=== PATIENT | female | born 1935 | race Caucasian/White ===

== ENCOUNTER 2016-10-05 09:49 | Observation (INO) ==
--- NOTE | 2016-10-05 09:56 | Emergency Department Note ---
Disposition Clinical Impression: Syncope, Fall, Laceration of head Disposition: Admitted As Inpatient General Adult HPI - General Chief complaint: ED Dizziness Stated complaint: cp/fall/lac/dizzy Time Seen by Provider: 10/05/16 09:52 Nursing Notes Reviewed: Yes Vital Signs Reviewed: Yes - Related Data Home Medications Medication Instructions Recorded Confirmed Albuterol Sulfate [Proair Hfa] 4 puff IH Q6H PRN 09/28/16 10/05/16 Baclofen [Lioresal] 10 mg PO TID 09/28/16 10/05/16 Digoxin [Lanoxin] 0.25 mg PO DAILY 09/28/16 10/05/16 Donepezil HCl [Aricept] 10 mg PO HS 09/28/16 10/05/16 Donepezil [Aricept] 5 mg PO QAM 09/28/16 10/05/16 Duloxetine HCl [Cymbalta] 60 mg PO DAILY 09/28/16 10/05/16 Esomeprazole Magnesium [Nexium] 40 mg PO QPM 09/28/16 10/05/16 Furosemide [Lasix] 40 mg PO DAILY 09/28/16 10/05/16 Gabapentin [Neurontin] 100 mg PO BID 09/28/16 10/05/16 Gabapentin [Neurontin] 200 mg PO HS 09/28/16 10/05/16 Lactulose 10 gm PO DAILY PRN 09/28/16 10/05/16 Lisinopril [Zestril] 10 mg PO DAILY 09/28/16 10/05/16 Montelukast [Singulair] 10 mg PO DAILY 09/28/16 10/05/16 Nitroglycerin [Nitrostat] 0.4 mg SL Q5M PRN 09/28/16 10/05/16 Simvastatin [Zocor] 20 mg PO HS 09/28/16 10/05/16 SitaGLIPtin [Januvia] 100 mg PO DAILY 09/28/16 10/05/16 Warfarin [Coumadin] 6 mg PO QPM 09/28/16 10/05/16 Levothyroxine [Synthroid] 150 mcg PO DAILY 10/05/16 10/05/16 Metformin HCl [Metformin HCl ER] 1,000 mg PO QAM 10/05/16 10/05/16 Nystatin POWDER [Nystop] 1 appl TP TID 10/05/16 10/05/16 Allergies Allergy/AdvReac Type Severity Reaction Status Date / Time Penicillins [PCN] Allergy Rash Verified 01/23/16 09:23 Sulfa (Sulfonamide Allergy Rash Verified 01/23/16 09:23 Antibiotics) azithromycin AdvReac Unknown Verified 09/28/16 20:11 Past Medical History - Past Medical History Medical history: Reports: arthritis, cardiomyopathy, COPD, dementia, diabetes, GERD, hyperlipidemia, hypertension, renal disease, thyroid disease, valvular heart disease, other Surgical history: Reports: heart valve replacement, other Psychiatric history: Reports: no psych history 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: Reports: no 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 - Social History Smoking Status: Never smoker Smokeless Tobacco Status: No Alcohol use: Reports: none Drug use: Reports: none Course Vital Signs Temperature 98.2 F 10/05/16 09:51 Pulse Rate 74 10/05/16 09:51 Respiratory Rate 18 10/05/16 09:51 Blood Pressure 142/90 10/05/16 09:51 O2 Sat by Pulse Oximetry 98 10/05/16 09:51 Temperature 97.2 F L 10/05/16 13:28 Pulse Rate 72 10/05/16 13:28 Respiratory Rate 15 10/05/16 13:28 Blood Pressure 156/74 10/05/16 13:28 O2 Sat by Pulse Oximetry 100 10/05/16 13:28 Oxygen Delivery Oxygen Delivery Room Air Medical Decision Making - MDM Narrative Medical decision making narrative: I examined this patient and my medical decision-making was reviewed with the REGIONAL VICE PRESIDENT [employer] SALES/PA/Advanced Practice Nurse/Resident Physician. I agree with the documented findings, disposition and treatment plan as described except to the extent set forth below. Patient was evaluated on arrival with EMS, and Dr. Chin. I agree with his evaluation, and management plan, I supervised her care of the patient throughout the stay. [facility] Had chest pain. Nitroglycerin. She will up and walk afterwards and ambulated and had an episode where she went down. She is not certain whether she lost consciousness or not. She did sustain a laceration over the forehead above the right eyebrow. This does not involve the eye itself. Showing some neck pain did place a c-collar on her by EMS. She will need a CT of her head neck tetanus update checking her lab work most likely will need admission between the possible syncopal episode the head injury and the chest pain. She has been green and plan she is stable at this time. Chest X-Ray 10/05/16 09:53 IMPRESSION: No acute cardiopulmonary abnormality. D/ / Leno Phillips MD / Leno Phillips MD Interpreting Provider: Leno Phillips MD Head CT 10/05/16 09:53 IMPRESSION: No acute intracranial abnormality. Stable periventricular white matter ischemic changes. D/ / Weston Shah MD / Weston Shah MD Interpreting Provider: Weston Shah MD Cervical Spine CT 10/05/16 09:56 IMPRESSION: No acute abnormality of the cervical spine. D/ / Jayjay Amato MD / Jayjay Amato MD Interpreting Provider: Jayjay Amato MD 1045 hrs.: Patient's CTs are back and are negative. Labs are coming back now this time also. Once there backward and reassess her and discuss disposition. - Lab Data Result diagrams: 10/05/16 09:55 10/05/16 09:55 Lab Results 10/05/16 10/05/16 10/05/16 Range/Units 09:55 09:55 09:55 WBC 7.5 (4.3-11.1) K/mcL RBC 4.28 (3.82-4.97) M/mcL Hgb 12.8 (11.5-15.4) g/dL Hct 39.1 (35.3-44.9) % MCV 91.4 (83.0-100.0) fL MCH 29.9 (28.0-33.3) pg MCHC 32.7 (31.6-35.5) g/dL RDW 13.5 (11.5-14.5) % Plt Count 183 (140-400) K/mcL MPV 10.5 (9.4-12.4) fL Immature Gran % 0.4 (0-4) % Seg Neutrophils % 70.8 % Lymphocytes % 17.0 % Monocytes % 8.9 % Eosinophils % 2.5 % Basophils % 0.4 % Neutrophils # 5.3 (1.6-8.9) K/mcL Lymphocytes # 1.3 (0.6-4.6) K/mcL Monocytes # 0.7 (0.0-1.3) K/mcL Eosinophils # 0.2 (0.0-0.6) K/mcL Basophils # 0.0 (0.0-0.2) K/mcL PT 21.8 H (9.4-12.1) Seconds INR 2.0 Sodium 139 (136-145) mEq/L Potassium 3.6 (3.5-4.5) mEq/L Chloride 102 (98-109) mEq/L Carbon Dioxide 29 (19-29) mEq/L BUN 13 (7-20) mg/dL Creatinine 0.85 (0.57-1.11) mg/dL Est GFR ( Amer) > 60 (> 60) Est GFR (Non-Af Amer) > 60 (> 60) BUN/Creatinine Ratio 15 (6-26) Glucose 115 H (70-99) mg/dL Calculated Osmolality 289 (280-300) Calcium 9.5 (8.6-10.8) mg/dL Total Bilirubin 0.9 (0.2-1.2) mg/dL AST 22 (5-34) Units/L ALT 18 (0-55) Units/L Alkaline Phosphatase 78 (38-126) Units/L Troponin I (0-0.03) ng/mL Serum Total Protein 7.3 (6.0-8.3) g/dL Albumin 3.6 (3.5-5.0) g/dL Globulin 3.7 H (2.4-3.5) g/dL Albumin/Globulin Ratio 1.0 L (1.1-2.2) 10/05/16 Range/Units 09:55 WBC (4.3-11.1) K/mcL RBC (3.82-4.97) M/mcL Hgb (11.5-15.4) g/dL Hct (35.3-44.9) % MCV (83.0-100.0) fL MCH (28.0-33.3) pg MCHC (31.6-35.5) g/dL RDW (11.5-14.5) % Plt Count (140-400) K/mcL MPV (9.4-12.4) fL Immature Gran % (0-4) % Seg Neutrophils % % Lymphocytes % % Monocytes % % Eosinophils % % Basophils % % Neutrophils # (1.6-8.9) K/mcL Lymphocytes # (0.6-4.6) K/mcL Monocytes # (0.0-1.3) K/mcL Eosinophils # (0.0-0.6) K/mcL Basophils # (0.0-0.2) K/mcL PT (9.4-12.1) Seconds INR Sodium (136-145) mEq/L Potassium (3.5-4.5) mEq/L Chloride (98-109) mEq/L Carbon Dioxide (19-29) mEq/L BUN (7-20) mg/dL Creatinine (0.57-1.11) mg/dL Est GFR ( Amer) (> 60) Est GFR (Non-Af Amer) (> 60) BUN/Creatinine Ratio (6-26) Glucose (70-99) mg/dL Calculated Osmolality (280-300) Calcium (8.6-10.8) mg/dL Total Bilirubin (0.2-1.2) mg/dL AST (5-34) Units/L ALT (0-55) Units/L Alkaline Phosphatase (38-126) Units/L Troponin I 0.01 (0-0.03) ng/mL Serum Total Protein (6.0-8.3) g/dL Albumin (3.5-5.0) g/dL Globulin (2.4-3.5) g/dL Albumin/Globulin Ratio (1.1-2.2)
[2016-10-05] MEDS ORDERED: Tdap (Boostrix) Vaccine 0.5 ML SYRINGE IM ONE (09:57)
[2016-10-05] MEDS ORDERED: 0.9 % Sodium Chloride 500 ML IVC ONE (09:59)
--- NOTE | 2016-10-05 10:00 | Emergency Department Note ---
Disposition Clinical Impression: Syncope Qualifiers: Syncope type: unspecified Qualified Code(s): R55 - Syncope and collapse Fall Qualifiers: Encounter type: initial encounter Qualified Code(s): W19.XXXA - Unspecified fall, initial encounter Laceration of head Qualifiers: Encounter type: initial encounter Location of open wound of head: scalp Foreign body presence: without foreign body Qualified Code(s): S01.01XA - Laceration without foreign body of scalp, initial encounter Disposition: Admitted As Inpatient Syncope HPI - General Chief Complaint: ED Dizziness Stated Complaint: cp/fall/lac/dizzy Time Seen by Provider: 10/05/16 09:52 Source: patient, EMS Mode of arrival: EMS Limitations: no limitations Nursing Notes Reviewed: Yes Vital Signs Reviewed: Yes - History of Present Illness HPI Narrative: 81-year-old female history of A. fib, systolic heart failure, COPD, A. fib with mechanical valve on Coumadin presents for evaluation following a fall. Patient' s prodrome prior to the fall was she is being treated for chest pain at the nursing facility and was given a pill possibly nitroglycerin. Patient then annually to the restroom and fell which was unwitnessed. Questionable LOC. Patient then ambulated to the couch where she called for assistance. Patient complaining of head and neck pain as well as chest pain. Patient denies any short of breath. No abdominal pain. No nausea vomiting. - Related Data Home Medications Medication Instructions Recorded Confirmed Albuterol Sulfate [Proair Hfa] 4 puff IH Q6H PRN 09/28/16 09/28/16 Baclofen [Lioresal] 10 mg PO TID 09/28/16 09/28/16 Digoxin [Lanoxin] 0.25 mg PO DAILY 09/28/16 09/28/16 Donepezil HCl [Aricept] 10 mg PO HS 09/28/16 09/28/16 Donepezil [Aricept] 5 mg PO QAM 09/28/16 09/28/16 Duloxetine HCl [Cymbalta] 60 mg PO DAILY 09/28/16 09/28/16 Esomeprazole Magnesium [Nexium] 40 mg PO QPM 09/28/16 09/28/16 Furosemide [Lasix] 40 mg PO DAILY 09/28/16 09/28/16 Gabapentin [Neurontin] 100 mg PO BID 09/28/16 09/28/16 Gabapentin [Neurontin] 200 mg PO HS 09/28/16 09/28/16 Lactulose 10 gm PO DAILY PRN 09/28/16 09/28/16 Lisinopril [Zestril] 10 mg PO DAILY 09/28/16 09/28/16 Montelukast [Singulair] 10 mg PO DAILY 09/28/16 09/28/16 Nitroglycerin [Nitrostat] 0.4 mg SL Q5M PRN 09/28/16 09/28/16 Simvastatin [Zocor] 20 mg PO HS 09/28/16 09/28/16 SitaGLIPtin [Januvia] 100 mg PO DAILY 09/28/16 09/28/16 Warfarin [Coumadin] 6 mg PO QPM 09/28/16 09/28/16 Levothyroxine [Synthroid] 150 mcg PO DAILY 10/05/16 10/05/16 Metformin HCl [Metformin HCl ER] 1,000 mg PO QAM 10/05/16 10/05/16 Nystatin POWDER [Nystop] 1 appl TP TID 10/05/16 10/05/16 Allergies Allergy/AdvReac Type Severity Reaction Status Date / Time Penicillins [PCN] Allergy Rash Verified 01/23/16 09:23 Sulfa (Sulfonamide Allergy Rash Verified 01/23/16 09:23 Antibiotics) azithromycin AdvReac Unknown Verified 09/28/16 20:11 All systems ED: reviewed and negative except as stated. Constitutional: Reports: as per HPI. Denies: fever Eyes: Reports: as per HPI ENT ED: Reports: as per HPI Cardiovascular: Reports: as per HPI, chest pain Respiratory: Reports: as per HPI. Denies: cough, dyspnea Gastrointestinal: Reports: as per HPI. Denies: abdominal pain, nausea, vomiting Genitourinary: Reports: as per HPI Musculoskeletal: Reports: as per HPI, neck pain. Denies: back pain Integumentary: Reports: as per HPI Neurological: Reports: as per HPI Psychiatric: Reports: as per HPI Endocrine: Reports: as per HPI Hematological/Lymphatic: Reports: as per HPI Allergic/Immunologic: Reports: as per HPI Past Medical History - Past Medical History Medical history: Reports: arthritis, cardiomyopathy, COPD, dementia, diabetes, GERD, hyperlipidemia, hypertension, renal disease, thyroid disease, valvular heart disease, other Surgical history: Reports: heart valve replacement, other Psychiatric history: Reports: no psych history ALGEBRAIST history: Reports: no ALGEBRAIST history - Social History Smoking Status: Never smoker Smokeless Tobacco Status: No Alcohol use: Reports: none Drug use: Reports: none Physical Exam - General Limitations: no limitations, language barrier General appearance: alert, in no apparent distress - Head Head exam: normocephalic, normal inspection, other (2 cm linear laceration above the right upper supraorbital ridge) - Eye Eye exam: Present: normal appearance, EOMI, miosis. Absent: nystagmus - ENT ENT exam: normal exam, mucous membranes moist - Neck Neck exam: Present: normal inspection, tenderness (Midline), other (In a cervical collar) - Chest Chest inspection: Present: normal inspection, symmetric chest wall rise - Respiratory Respiratory exam: Present: normal lung sounds bilaterally. Absent: respiratory distress - Cardiovascular Cardiovascular exam: Present: regular rate, normal rhythm, systolic murmur - Abdominal Exam Abdominal exam: Present: soft, Non-Tender - Extremities Exam Extremities exam: Present: normal inspection, pedal edema (23 plus pedal edema bilaterally) - Expanded Lower Extremity Exam Hip/Pelvis exam: Present: normal inspection. Absent: tenderness Upper leg exam: Present: normal inspection. Absent: tenderness Neurovascular/Tendon exam: Present: normal capillary refill - Back Exam Back exam: Present: normal inspection - Neurological Exam Neurological exam: Present: alert, oriented X3 - Expanded Neurological Exam Patient oriented to: Present: person, place, time Speech: Present: fluid speech Motor strength - LUE: 5/5 Motor strength - RUE: 5/5 Motor strength - LLE: 5/5 Motor strength - RLE: 5/5 Coma Scale Eye Opening: Spontaneous Coma Scale Motor Response: Obeys Commands Coma Scale Verbal Response: Oriented Coma Scale Total: 15 - Skin Skin exam: Present: warm, dry, intact, normal color Course Course Narrative: Patient seen and examined. Patient is complaining of head and neck pain. Patient does have a linear laceration over the right supraorbital ridge but is not involving any tarsal muscles. Patient will get a syncopal workup, laceration. Updated tetanus, is a collapsed CT of the head and neck and chest x -ray. Patient's records were reviewed. Patient had an echo obtained back in April 2015 with an EF of 65 with a mechanical aortic valve. - Reevaluation(s) Reevaluation #1: Patient's laceration was repaired. Patient tolerated the procedure well. Patient denies any pain at this time. Patient's cervical collar was removed and her C-spine is cleared. Time: 11:20 Vital Signs Temperature 98.2 F 10/05/16 09:51 Pulse Rate 74 10/05/16 09:51 Respiratory Rate 18 10/05/16 09:51 Blood Pressure 142/90 10/05/16 09:51 O2 Sat by Pulse Oximetry 98 10/05/16 09:51 Temperature 98.2 F 10/05/16 09:51 Pulse Rate 74 10/05/16 09:51 Respiratory Rate 18 10/05/16 09:51 Blood Pressure 142/90 10/05/16 09:51 O2 Sat by Pulse Oximetry 98 10/05/16 09:51 Oxygen Delivery Oxygen Delivery Room Air Procedures - Laceration Laceration 1 Site: scalp Side (If applicable): right Size (cm): 5 Description: linear Depth: simple, single layer Local Anesthetic: lidocaine 2%, with epi Amount of Anesthesia Used (mL): 3 Pre-repair: wound explored, irrigated extensively, deep structures intact, extensive debridement, wound margins revised Skin layer closed with: nylon Size: 5-0 Number of sutures/royal: 7 Technique: simple, interrupted Syncope - [facility] Narrative Medical decision making narrative: 81-year-old female presents from a nursing facility for fall question possible syncope. Fall was unwitnessed. Patient did complain of chest pain prior to his given was presumed to be nitroglycerin. Patient then went into the restroom and fell. Patient does have evidence of fall with laceration over her head. Patient's laceration was repaired. Patient's tetanus was updated. Patient had imaging of the head and neck as well as chest. No acute abnormalities were noted. Patient's mental status is at baseline. Patient is alert. Patient is on Coumadin with an INR 2.0. Patient's EKG shows no acute changes. Patient's lab work is unremarkable. Patient will likely need monitoring in hospital setting with neuro checks on mental status as well as further evaluation. Hospitalist accepted the patient. Patient is agreeable to plan of care. - Lab Data Lab results reviewed: Yes I reviewed the patient's lab results. Result diagrams: 10/05/16 09:55 10/05/16 09:55 Lab Results 10/05/16 10/05/16 10/05/16 Range/Units 09:55 09:55 09:55 WBC 7.5 (4.3-11.1) K/mcL RBC 4.28 (3.82-4.97) M/mcL Hgb 12.8 (11.5-15.4) g/dL Hct 39.1 (35.3-44.9) % MCV 91.4 (83.0-100.0) fL MCH 29.9 (28.0-33.3) pg MCHC 32.7 (31.6-35.5) g/dL RDW 13.5 (11.5-14.5) % Plt Count 183 (140-400) K/mcL MPV 10.5 (9.4-12.4) fL Immature Gran % 0.4 (0-4) % Seg Neutrophils % 70.8 % Lymphocytes % 17.0 % Monocytes % 8.9 % Eosinophils % 2.5 % Basophils % 0.4 % Neutrophils # 5.3 (1.6-8.9) K/mcL Lymphocytes # 1.3 (0.6-4.6) K/mcL Monocytes # 0.7 (0.0-1.3) K/mcL Eosinophils # 0.2 (0.0-0.6) K/mcL Basophils # 0.0 (0.0-0.2) K/mcL PT 21.8 H (9.4-12.1) Seconds INR 2.0 Sodium 139 (136-145) mEq/L Potassium 3.6 (3.5-4.5) mEq/L Chloride 102 (98-109) mEq/L Carbon Dioxide 29 (19-29) mEq/L BUN 13 (7-20) mg/dL Creatinine 0.85 (0.57-1.11) mg/dL Est GFR ( Amer) > 60 (> 60) Est GFR (Non-Af Amer) > 60 (> 60) BUN/Creatinine Ratio 15 (6-26) Glucose 115 H (70-99) mg/dL Calculated Osmolality 289 (280-300) Calcium 9.5 (8.6-10.8) mg/dL Total Bilirubin 0.9 (0.2-1.2) mg/dL AST 22 (5-34) Units/L ALT 18 (0-55) Units/L Alkaline Phosphatase 78 (38-126) Units/L Troponin I (0-0.03) ng/mL Serum Total Protein 7.3 (6.0-8.3) g/dL Albumin 3.6 (3.5-5.0) g/dL Globulin 3.7 H (2.4-3.5) g/dL Albumin/Globulin Ratio 1.0 L (1.1-2.2) 10/05/16 Range/Units 09:55 WBC (4.3-11.1) K/mcL RBC (3.82-4.97) M/mcL Hgb (11.5-15.4) g/dL Hct (35.3-44.9) % MCV (83.0-100.0) fL MCH (28.0-33.3) pg MCHC (31.6-35.5) g/dL RDW (11.5-14.5) % Plt Count (140-400) K/mcL MPV (9.4-12.4) fL Immature Gran % (0-4) % Seg Neutrophils % % Lymphocytes % % Monocytes % % Eosinophils % % Basophils % % Neutrophils # (1.6-8.9) K/mcL Lymphocytes # (0.6-4.6) K/mcL Monocytes # (0.0-1.3) K/mcL Eosinophils # (0.0-0.6) K/mcL Basophils # (0.0-0.2) K/mcL PT (9.4-12.1) Seconds INR Sodium (136-145) mEq/L Potassium (3.5-4.5) mEq/L Chloride (98-109) mEq/L Carbon Dioxide (19-29) mEq/L BUN (7-20) mg/dL Creatinine (0.57-1.11) mg/dL Est GFR ( Amer) (> 60) Est GFR (Non-Af Amer) (> 60) BUN/Creatinine Ratio (6-26) Glucose (70-99) mg/dL Calculated Osmolality (280-300) Calcium (8.6-10.8) mg/dL Total Bilirubin (0.2-1.2) mg/dL AST (5-34) Units/L ALT (0-55) Units/L Alkaline Phosphatase (38-126) Units/L Troponin I 0.01 (0-0.03) ng/mL Serum Total Protein (6.0-8.3) g/dL Albumin (3.5-5.0) g/dL Globulin (2.4-3.5) g/dL Albumin/Globulin Ratio (1.1-2.2) - Radiology Data Radiology results reviewed: Yes I reviewed the patient's radiology results. Chest X-Ray 10/05/16 09:53 IMPRESSION: No acute cardiopulmonary abnormality. D/ / Leno Phillips MD / Leno Phillips MD Interpreting Provider: Leno Phillips MD Head CT 10/05/16 09:53 IMPRESSION: No acute intracranial abnormality. Stable periventricular white matter ischemic changes. D/ / 10/05/2016 10:44:55 Weston Shah MD / [facility] Interpreting Provider: Weston Shah MD Cervical Spine CT 10/05/16 09:56 IMPRESSION: No acute abnormality of the cervical spine. D/ / Jayjay Amato MD / Jayjay Amato MD Interpreting Provider: Jayjay Amato MD - EKG Data EKG shows normal: sinus rhythm Rate: normal Rhythm: NSR Kamuela/QRS: left axis deviation, LAHB/LAFB Heart block present: 1st Degree When compared to previous EKG there are: no significant changes Interpretation: no acute changes, unchanged when compared to prior tracing (date ), nonspecific ST-T wave changes S.B.A.R. - S.B.A.R. Situation: Demographics Background: Presenting Complaint, Relevant PMH, Meds, & Allergies Assessment: Vital Signs, Course and respsone to treatment, Patient/Family Expectation Recommendation: Barrier(s) to disposition, Recommendation based on pending studies, treatments, or consults S.B.A.R. Report Given to: Dr. Adriana Vegas Repor Time: 11:37
[2016-10-05] MEDS ORDERED: Lidocaine/EPI 1:100k 2% 20 ML VIAL INFILT ONE (10:05)
[2016-10-05 10:06] LABS: Basophils % 0.4 %; Eosinophils # 0.2 K/mcL (0.0-0.6); Eosinophils % 2.5 %; Hematocrit 39.1 % (35.3-44.9); Hemoglobin 12.8 g/dL (11.5-15.4); Immature Granulocytes % 0.4 % (0-4); Lymphocytes # 1.3 K/mcL (0.6-4.6); Mean Corpuscular HGB Conc 32.7 g/dL (31.6-35.5); Mean Corpuscular Hemoglobin 29.9 pg (28.0-33.3); Mean Corpuscular Volume 91.4 fL (83.0-100.0); Mean Platelet Volume 10.5 fL (9.4-12.4); Monocytes # 0.7 K/mcL (0.0-1.3); Monocytes % 8.9 %; Neutrophils # 5.3 K/mcL (1.6-8.9); Platelet Count 183 K/mcL (140-400); Red Blood Count 4.28 M/mcL (3.82-4.97); Red Cell Distribution Width 13.5 % (11.5-14.5); Segmented Neutrophils % 70.8 %
[2016-10-05 10:11] LABS: Prothrombin Time 21.8 Seconds (9.4-12.1)
[2016-10-05 10:23] LABS: Alanine Aminotransferase 18 Units/L (0-55); Albumin 3.6 g/dL (3.5-5.0); Alkaline Phosphatase 78 Units/L (38-126); Aspartate Amino Transferase 22 Units/L (5-34); BUN/Creatinine Ratio 15 (6-26); Bilirubin,Total 0.9 mg/dL (0.2-1.2); Blood Urea Nitrogen 13 mg/dL (7-20); Calcium 9.5 mg/dL (8.6-10.8); Carbon Dioxide 29 mEq/L (19-29); Chloride 102 mEq/L (98-109); Globulin 3.7 g/dL (2.4-3.5); Glucose 115 mg/dL (70-99); Osmolality,Calculated 289 (280-300); Potassium 3.6 mEq/L (3.5-4.5); Sodium 139 mEq/L (136-145); Total Protein 7.3 g/dL (6.0-8.3); eGFR For African Americans > 60 (> 60); eGFR For Non-African Americans > 60 (> 60)
[2016-10-05 12:33] LABS: Bilirubin,Urine Negative (Negative); Blood,Urine Negative (Negative); Clarity,Urine Clear (Clear); Color,Urine Yellow (Yellow); Glucose,Urine (UA) Normal (Normal); Ketones,Urine Negative (Negative); Leukocyte Esterase,Urine Negative (Negative); Nitrite,Urine Negative (Negative); Protein,Urine Negative (Neg-Trace); Specific Gravity,Urine < 1.005 (1.010-1.025); Urobilinogen,Urine Normal (Normal)
[2016-10-05] MEDS ORDERED: Naloxone 0.4 MG/ML INJ IVP PRN (13:14)
[2016-10-05] MEDS ORDERED: Acetaminophen 325 MG TABLET PO PRN (13:14)
[2016-10-05] MEDS ORDERED: Ondansetron 4 MG/2 ML VIAL IVP PRN (13:14)
[2016-10-05] MEDS ORDERED: Nitroglycerin 0.4 MG TAB.SUBL SL PRN (13:16)
[2016-10-05] MEDS ORDERED: Dextrose Gel 15 GM PO PRN ×2 (13:53)
[2016-10-05] MEDS ORDERED: D5% in Water 1,000 ML IV PRN (13:53)
[2016-10-05] MEDS ORDERED: *HR* Dextrose 50 % in Water (Syg) 50 ML SYRINGE IVP PRN (13:53)
--- NOTE | 2016-10-05 15:08 | Internal Med History&Physical ---
Date of Encounter: 10/05/16 Time of Encounter: 13:00 Assessment and Plan (1) Chest pain Current visit: Yes Status: Acute Intermittent ongoing chest pain, associated with dyspnea and pedal edema, to consider ACS. Telemetry monitoring with serial troponins. Check 2-D echocardiogram to assess for left ventricular ejection fraction. Nuclear stress test to evaluate for coronary ischemia. Continue Coumadin and statin. Qualifiers: Chest pain type: precordial chest pain Qualified Code(s): R07.2 - Precordial pain (2) Syncope Current visit: Yes Status: Acute Unclear history. CT head done in the emergency room showed no acute abnormality. CT cervical spine showed no evidence of fractures or trauma. Continue telemetry monitoring and cardiac workup as above. Qualifiers: Syncope type: unspecified Qualified Code(s): R55 - Syncope and collapse (3) Laceration of head Current visit: Yes Status: Acute Status post fall, likely from syncope. She received sutures in the emergency room. Pain control with when necessary Tylenol. No evidence of skull fracture on CT head. Qualifiers: Encounter type: initial encounter Location of open wound of head: scalp Foreign body presence: without foreign body Qualified Code(s): S01.01XA - Laceration without foreign body of scalp, initial encounter (4) Fall Current visit: Yes Status: Acute Qualifiers: Encounter type: initial encounter Qualified Code(s): W19.XXXA - Unspecified fall, initial encounter (5) H/O aortic valve replacement Current visit: Yes Status: Chronic Continue anticoagulation with Coumadin as patient is not noted to have any active bleed. (6) Hypothyroidism Current visit: Yes Status: Chronic Resume levothyroxine. Qualifiers: Hypothyroidism type: acquired Qualified Code(s): E03.9 - Hypothyroidism, unspecified (7) Atrial fibrillation Current visit: Yes Status: Chronic Qualifiers: Atrial fibrillation type: paroxysmal Qualified Code(s): I48.0 - Paroxysmal atrial fibrillation (8) COPD (chronic obstructive pulmonary disease) Current visit: Yes Status: Chronic Not in acute exacerbation. Continue when necessary bronchodilators and supplemental oxygen. Qualifiers: COPD type: unspecified COPD Qualified Code(s): J44.9 - Chronic obstructive pulmonary disease, unspecified (9) Dementia Current visit: Yes Status: Chronic Continue Aricept. Qualifiers: Dementia type: Alzheimer's disease Alzheimer's disease onset: late-onset Dementia behavioral disturbance: without behavioral disturbance Qualified Code (s): G30.1 - Alzheimer's disease with late onset; F02.80 - Dementia in other diseases classified elsewhere without behavioral disturbance (10) Hypertension Current visit: Yes Status: Chronic Qualifiers: Hypertension type: essential hypertension Qualified Code(s): I10 - Essential (primary) hypertension (11) Type 2 diabetes mellitus Current visit: Yes Status: Chronic Accu-Chek blood glucose monitoring with sliding scale insulin as needed. Diabetic diet. Check hemoglobin A1c. Qualifiers: Diabetes mellitus complication status: without complication Diabetes mellitus extermination inspector insulin use: without jail use Qualified Code(s): E11.9 - Type 2 diabetes mellitus without complications Internal Medicine - H&P: HPI Chief complaint: Chest pain, fall Admitted From: Emergency Dept Plans for Post Hospital Care: Home (Assisted living) History of present illness: Ms. Devine is a 81 year old female with history of atrial fibrillation, mechanical aortic valve replacement on anticoagulation, was brought in for evaluation of forehead laceration after sustaining a fall. Patient had a recent admission less than a week ago for evaluation of chest pain, however decided to leave AGAINST MEDICAL ADVICE. She requested to go back to her assisted living facility today, however decided to stay for further evaluation at this time. Patient reports that she was walking to the restroom and back when she felt dizzy and fell down yesterday, hitting her forehead and sustaining a bruise and a cut. She also has history of previous falls. She reports intermittent ongoing chest pain for the last 4-5 days, retrosternal pressure-like sensation, nonradiating, associated with leg swelling and some shortness of breath. Although she is oriented to person and place in general, she is unable to provide specific details regarding her medical history. History is also obtained from review of previous medical records and discussion with emergency room physician. It is questionable whether she follows with cardiology or if she does have underlying CHF but she is noted to be on diuretics and long-term anticoagulation. Past Med Surg Social Fam HX - Past Medical History Medical history: arthritis, atrial fibrillation, cardiomyopathy, COPD, dementia , diabetes, GERD, hyperlipidemia, hypertension, renal disease, thyroid disease, valvular heart disease (Aortic valve replacement), other (Urinary incontinence) Psychiatric history: no psych history - Past Surgical History Surgical History: appendectomy, , heart valve replacement, other - Social History Smoking Status: Never smoker Smokeless Tobacco Status: No Alcohol use: none Drug use: none Occupational status: disabled Current living situation: Assisted Living Activity Level: Independent ambulation Recent Out of Country Travel Within the Last 8 Weeks: No Exposure or Possible Exposure to Illness During Travel: No - Family History Father Name: Cristino Vasques Living Status: Age at : 85 Internal Medicine - H&P: Meds Albuterol Sulfate [Proair Hfa] 4 puff IH Q6H PRN 09/28/16 [History] Baclofen [Lioresal] 10 mg PO TID 09/28/16 [History] Digoxin [Lanoxin] 0.25 mg PO DAILY 09/28/16 [History] Donepezil HCl [Aricept] 10 mg PO HS 09/28/16 [History] Donepezil [Aricept] 5 mg PO QAM 09/28/16 [History] Duloxetine HCl [Cymbalta] 60 mg PO DAILY 09/28/16 [History] Esomeprazole Magnesium [Nexium] 40 mg PO QPM 09/28/16 [History] Furosemide [Lasix] 40 mg PO DAILY 09/28/16 [History] Gabapentin [Neurontin] 100 mg PO BID 09/28/16 [History] Gabapentin [Neurontin] 200 mg PO HS 09/28/16 [History] Lactulose 10 gm PO DAILY PRN 09/28/16 [History] Lisinopril [Zestril] 10 mg PO DAILY 09/28/16 [History] Montelukast [Singulair] 10 mg PO DAILY 09/28/16 [History] Nitroglycerin [Nitrostat] 0.4 mg SL Q5M PRN 09/28/16 [History] Simvastatin [Zocor] 20 mg PO HS 09/28/16 [History] SitaGLIPtin [Januvia] 100 mg PO DAILY 09/28/16 [History] Warfarin [Coumadin] 6 mg PO QPM 09/28/16 [History] Levothyroxine [Synthroid] 150 mcg PO DAILY 10/05/16 [History] Metformin HCl [Metformin HCl ER] 1,000 mg PO QAM 10/05/16 [History] Nystatin POWDER [Nystop] 1 appl TP TID 10/05/16 [History] Allergies Penicillins [PCN] Allergy (Verified 01/23/16 09:23) Rash Sulfa (Sulfonamide Antibiotics) Allergy (Verified 01/23/16 09:23) Rash azithromycin Adverse Reaction (Verified 09/28/16 20:11) Unknown ECF list All Systems PM: A 10-system review of systems was performed and is negative for pertinent findings except as documented above in the HPI. - Constitutional Constitutional: no chills, no fever(s), no night sweats - EENT Eyes: no change in vision, no discharge, no pain, no photophobia Ears: no ear discharge, no ear pain, no tinnitus Nose, mouth and throat: no dysphagia, no nasal discharge, no neck pain, no sore throat - Cardiovascular Cardiovascular ROS IM: chest pain, dyspnea, edema, lightheadedness - Respiratory Respiratory: no cough, no dyspnea, no wheezing, no excessive phlegm production - Gastrointestinal Gastrointestinal: no abdominal pain, no diarrhea, no hematemesis, no hematochezia, no melena, no nausea, no vomiting - Genitourinary Genitourinary: no change in urinary stream, no dysuria, no flank pain, no hematuria - Musculoskeletal Musculoskeletal ROS IM: no numbness, no tingling - Integumentary Integumentary IM: no rash, no unusual bruising - Neurological Neurological ROS: no confusion, no convulsions, no focal weakness, no numbness, no tingling, no tremor(s) - Hematologic/Lymphatic Hematologic/Lymphatic: no easy bruising - Constitutional Vitals: Temp Pulse Resp BP Pulse Ox 97.2 F L 72 15 156/74 100 10/05/16 13:28 10/05/16 13:28 10/05/16 13:28 10/05/16 13:28 10/05/16 13:28 General appearance: Present: A&O X 2 - Head Head exam: Present: atraumatic, normocephalic Additional comments: 5cm linear transverse laceration sutured over right eyebrow, with surrounding contusion - Neck Neck exam general surgery: Present: supple, trachea midline. Absent: lymphadenopathy - Respiratory Respiratory exam: Present: CTAB. Absent: accessory muscle use, rales, rhonchi, wheezes - Cardiovascular Cardiovascular exam: Present: RRR, +S1, +S2 (mechanical heart sound), systolic murmur. Absent: diastolic murmur, gallop, rubs - GI/Abdominal GI/Abdominal exam: Present: normal bowel sounds, soft, no peritoneal signs. Absent: distended, tenderness - Extremities Exam Extremities exam: Present: full ROM, pedal edema (2+ pedal edema, pitting, B/L upto thighs), warm, radial pulses palpable and symetrical. Absent: calf tenderness, cyanotic - Neurological Exam Neurological exam: Present: CN II-XII intact, no focal deficits. Absent: pronater drift, facial droop, speech deficit - Skin Skin exam: Present: dry, intact Internal Med - H&P Results - Labs CBC & Chem 7: 10/05/16 09:55 10/05/16 09:55 Labs: Urine 10/05/16 Range/Units 11:48 Urine Color Yellow (Yellow) Urine Clarity Clear (Clear) Urine pH 7.0 (5.0-8.0) pH Units Ur Specific [place] < 1.005 L (1.010-1.025) Urine Protein Negative (Neg-Trace) mg/dL Urine Glucose (UA) Normal (Normal) mg/dL - EKG Data -: EKG Interpreted by Myself EKG shows normal: sinus rhythm - EKG Data When compared to previous EKG: there is no significant change EKG comments: 10/05/16 15:14 NSR with LAFB, PACs, LVH with repolarization abnormalities
--- NOTE | 2016-10-05 17:09 | ECHO - Doppler Report ---
Echocardiogram Name: Angelica Devine Date of Study: 10/05/2016 Date: 1935 Ht: 63.0 in Medical Record#: [id number] Age: 81 Wt: 188.0 lb Gender: Female BSA: 1.88 Order #: [id number] Location: [facility] Room #: [id number] Reading Physician: Austin Mills DO, JOSE FRANCISCO, BRIDGER EDGAR [employer]: Ordering Physician: Kelli Wright MD Primary Physician: Jules Spain MD Indications: Chest pain Impressions: LVEF 70%. Normal LV chamber size, wall thickness and function. Atypical septal motion consistent with post-operative status. Mild left ventricular diastolic dysfunction. Normal right ventricular structure and function. Mechanical aortic valve apears to be well seated. Leaflets were not well visualized. No aortic regurgitation. Mean gradient 18 mmHg. Correlate with size and type of valve. No evidence of pulmonary hypertension. Left Ventricular Wall Motion: Rest Echo Findings All wall segments showed normal motion. Findings: Study Quality * Technically adequate exam. ECG Findings * Normal sinus rhythm. Left Ventricle * LVEF 70%. * Normal LV chamber size, wall thickness and function. * Atypical septal motion consistent with post-operative status. * Mild left ventricular diastolic dysfunction. Right Ventricle * Normal right ventricular structure and function. Left Atrium * Mildly dilated left atrium. Right Atrium * Normal right atrial size. Interatrial Septum * Interatrial septum not well evaluated. Aortic Valve * Mechanical aortic valve apears to be well seated. Leaflets were not well visualized. * No aortic regurgitation. * Mean gradient 18 mmHg. Correlate with size and type of valve. Mitral Valve * Mild mitral annular calcification. * No mitral regurgitation. * No mitral stenosis. Tricuspid Valve * Normal tricuspid valve structure and function. * Trace tricuspid regurgitation. * No evidence of pulmonary hypertension. Pulmonic Valve * Pulmonic valve not well visualized. Aorta * Normally sized aortic root. Pericardium * The pericardium appears normal. IVC * Normal IVC dimensions and inspiratory collapse. Pulmonary Artery * Normal visualized portions of the main pulmonary artery. History Hypertension Diabetes Hypercholesteremia Family History of CAD Congestive Heart Failure Valvular Disease Valve Replacement AV Prosthesis Mechanical 05/26/2015 a Previous Echo was performed. Measurements: BP: 126/ 69 2D Normal Values RVIDd: 2.80 cm <2.7 cm IVSd: 1.20 cm 0.6 - 1.0 cm LVIDd: 4.30 cm 3.7 - 5.6 cm LVPWd: 1.20 cm 0.6 - 1.1 cm LVIDs: 3.00 cm 1.5 - 3.6 cm AO: 3.10 cm < 4.0 cm LA: 4.00 cm 2.0 - 4.0cm %FS: 30.20 cm >25 % LVOT Diam: 2.00 cm LA volume: 47 Mitral Valve Peak E:1.02 m/sec Peak A:1.29 m/sec E/A Ratio:0.8 Peak E' Lat Ross:5.85 cm/s Peak E' Med Ross:5.36 cm/s E/E' Lat Ratio:17.4 E/E' Med Ratio:19 LVOT Peak Ross:1.46 m/sec Mean Ross:.98 m/sec Peak Grad:9.00 mmHg Mean Grad:5.00 mmHg Aortic Valve Peak Ross:2.83 m/sec Mean Ross:2.03 m/sec Peak Grad:32.00 mmHg Mean Grad:18.00 mmHg Valve Area:1.69 cm2 Tricuspid Valve TV Regurg Peak Grad: 25.00mmHg TV Regurg Peak Ross: 2.49m/sec Updated by Austin Mills DO, FACWhit, BRIDGER EDGAR on 10/05/2016 5:05:04 PM electronically signed on 10/05/2016 5:05:18 PM with status of Final Wall Motion Yepez: 1=Normal, 2=Hypokinesis, 3=Akinesis, 4=Dyskinesis, 5=Aneurysmal, 6=Hyperkinetic, X=Not Visualized (Blank)=Missing
[2016-10-05] MEDS: Insulin LISPRO 300 UNITS/3 ML VIAL SQ SCH ×2 (17:16→21:28)
[2016-10-05] MEDS: Baclofen 10 MG TABLET PO SCH ×2 (17:43→20:14)
[2016-10-05] MEDS: *HR* Warfarin 3 MG TABLET PO SCH (17:44)
[2016-10-05] MEDS: Gabapentin 100 MG CAPSULE PO SCH ×2 (20:14)
[2016-10-06 04:37] LABS: Basophils % 0.4 %; Eosinophils # 0.2 K/mcL (0.0-0.6); Eosinophils % 2.5 %; Hematocrit 35.4 % (35.3-44.9); Hemoglobin 11.7 g/dL (11.5-15.4); Immature Granulocytes % 0.2 % (0-4); Lymphocytes # 1.5 K/mcL (0.6-4.6); Lymphocytes % 18.2 %; Mean Corpuscular HGB Conc 33.1 g/dL (31.6-35.5); Mean Corpuscular Hemoglobin 30.4 pg (28.0-33.3); Mean Corpuscular Volume 91.9 fL (83.0-100.0); Mean Platelet Volume 10.5 fL (9.4-12.4); Monocytes # 0.7 K/mcL (0.0-1.3); Monocytes % 8.3 %; Neutrophils # 5.9 K/mcL (1.6-8.9); Platelet Count 164 K/mcL (140-400); Red Blood Count 3.85 M/mcL (3.82-4.97); Red Cell Distribution Width 13.7 % (11.5-14.5); Segmented Neutrophils % 70.4 %
[2016-10-06 04:42] LABS: INR 2.3; Prothrombin Time 25.6 Seconds (9.4-12.1)
[2016-10-06 04:56] LABS: BUN/Creatinine Ratio 14 (6-26); Blood Urea Nitrogen 10 mg/dL (7-20); Calcium 8.9 mg/dL (8.6-10.8); Carbon Dioxide 29 mEq/L (19-29); Chloride 106 mEq/L (98-109); Chol/HDL Ratio 3.2 (0-4.9); Cholesterol 114 mg/dL (< 200); Glucose 98 mg/dL (70-99); HDL Cholesterol 36 mg/dL (40-59); LDL Cholesterol,Calculated 60 mg/dL (0-99); Osmolality,Calculated 287 (280-300); Potassium 3.9 mEq/L (3.5-4.5); Sodium 139 mEq/L (136-145); Triglycerides 91 mg/dL (< 150); eGFR For African Americans > 60 (> 60); eGFR For Non-African Americans > 60 (> 60)
[2016-10-06] MEDS ORDERED: Regadenoson 0.4 MG/5 ML SYRINGE IVP ONE ×2 (07:41→12:10)
--- NOTE | 2016-10-06 08:40 | Internal Med Progress Note ---
Date of Encounter: 10/08/16 Time of Encounter: 08:39 - Assessment and plan (1) Chest pain Current Visit: Yes Status: Acute Assessment and plan: Chest pain: -JAKY= 3 - ECHO : EF >50%, Chamber size and wall function normal. Mechanical Aortic valve. - NOted that patient is scheduled for NST - will await for results of NST - IF NST positive then will consult cardiology. Qualifiers: Chest pain type: precordial chest pain Qualified Code(s): R07.2 - Precordial pain (2) H/O aortic valve replacement Current Visit: Yes Status: Chronic Assessment and plan: History of aortic valve replacement. INR 2.3 from 2 NO signs of DVT Will continue same dose of coumadin and will check tomorrow morning. (3) Laceration of head Current Visit: Yes Status: Acute Assessment and plan: Syncopal Episode: - patient had syncopal episode and had a fall. - she has laceration over forehead. CT head WNL - S/P CLW suturing - NO active bleeding from wound or clotted blood in wund. - will continue monitoring Qualifiers: Encounter type: initial encounter Location of open wound of head: scalp Foreign body presence: without foreign body Qualified Code(s): S01.01XA - Laceration without foreign body of scalp, initial encounter (4) Atrial fibrillation Current Visit: Yes Status: Chronic Assessment and plan: In Sinus now. Qualifiers: Atrial fibrillation type: paroxysmal Qualified Code(s): I48.0 - Paroxysmal atrial fibrillation (5) COPD (chronic obstructive pulmonary disease) Current Visit: Yes Status: Chronic Assessment and plan: Stable Qualifiers: COPD type: unspecified COPD Qualified Code(s): J44.9 - Chronic obstructive pulmonary disease, unspecified (6) Type 2 diabetes mellitus Current Visit: Yes Status: Chronic Assessment and plan: Will continue monitor blood sugar. inpatient insulin adjustment Qualifiers: Diabetes mellitus complication status: without complication Diabetes mellitus skilled nursing insulin use: without skilled nursing use Qualified Code(s): E11.9 - Type 2 diabetes mellitus without complications (7) DVT prophylaxis Current Visit: No Status: Acute Assessment and plan: coumadin Medical risk management: patient has mild to moderate risk for worsening in spite of appropriate medications - Subjective Interval history: patient seen and examined. denies chest pain. denies SOB or syncopal episodes in last 12 hours. has fatigue and tired. - Constitutional Vitals: Temp Pulse Resp BP Pulse Ox 97.8 F 83 14 109/70 94 L 10/06/16 03:39 10/06/16 03:39 10/06/16 03:39 10/06/16 03:39 10/06/16 03:39 General appearance: Present: A&O X 3, pleasant, no acute distress, answers questions appropriately - Head Head exam: Present: atraumatic, normocephalic - Eye Eye exam: Present: PERRL, conjuntiva pink, sclera anicteric Pupils: Present: PERRL - Neck Neck exam general surgery: Present: supple, trachea midline. Absent: lymphadenopathy - Respiratory Respiratory exam: Present: CTAB. Absent: accessory muscle use, rales, rhonchi, wheezes - Cardiovascular Cardiovascular exam: Present: RRR, +S1, +S2. Absent: diastolic murmur, gallop, rubs, systolic murmur - GI/Abdominal GI/Abdominal exam: Present: normal bowel sounds, soft, no peritoneal signs. Absent: distended, tenderness - Extremities Exam Extremities exam: Present: warm, radial pulses palpable and symetrical. Absent : calf tenderness, cyanotic, pedal edema - Neurological Exam Neurological exam: Present: CN II-XII intact, oriented X3, no focal deficits. Absent: pronater drift, facial droop, speech deficit - Skin Skin exam: Present: dry, intact Internal Medicine: Result - Labs CBC & Chem 7: 10/06/16 04:30 10/06/16 04:30 Labs: Short CBC 10/06/16 Range/Units 04:30 WBC 8.4 (4.3-11.1) K/mcL Hgb 11.7 (11.5-15.4) g/dL Hct 35.4 (35.3-44.9) % Plt Count 164 (140-400) K/mcL Neutrophils # 5.9 (1.6-8.9) K/mcL BMP 10/06/16 04:30 Sodium 139 Potassium 3.9 Chloride 106 Carbon Dioxide 29 BUN 10 Creatinine 0.74 Glucose 98 Calcium 8.9 Cardiac Enzymes 10/05/16 10/05/16 10/06/16 Range/Units 16:48 23:02 04:30 Troponin I 0.01 0.02 0.01 (0-0.03) ng/mL Urine 10/05/16 Range/Units 11:48 Urine Color Yellow (Yellow) Urine Clarity Clear (Clear) Urine pH 7.0 (5.0-8.0) pH Units Ur Specific [place] < 1.005 L (1.010-1.025) Urine Protein Negative (Neg-Trace) mg/dL Urine Glucose (UA) Normal (Normal) mg/dL results noted and discussed with patient briefly - ABG Interpretation ABG results: PT/INR, D-dimer PT 25.6 Seconds (9.4-12.1) H 10/06/16 04:30 Consult Discharge Plan - Plan Referrals: NO,PCP [Primary Care Provider] -
[2016-10-06] MEDS ORDERED: *HR* LORazepam 2 MG/ML VIAL IVP ONE ×2 (10:06→22:24)
[2016-10-06] MEDS ORDERED: *HR* LORazepam 2 MG/ML VIAL ONE (10:08)
[2016-10-06] MEDS: Baclofen 10 MG TABLET PO SCH ×2 (14:59→19:57)
[2016-10-06] MEDS: Furosemide 40 MG TABLET PO SCH (14:59)
[2016-10-06] MEDS: *HR* SitaGLIPtin 100 MG TABLET PO SCH (14:59)
[2016-10-06] MEDS: METFORMIN HCL 1000 MG PO SCH (15:00)
[2016-10-06] MEDS: *HR* Digoxin 0.25 MG TABLET PO SCH (15:00)
[2016-10-06] MEDS: Insulin LISPRO 300 UNITS/3 ML VIAL SQ SCH ×3 (15:00→21:33)
[2016-10-06] MEDS: Gabapentin 100 MG CAPSULE PO SCH ×3 (15:03→19:57)
[2016-10-06] MEDS: *HR* OxyCODONE/APAP 10/325 TABLET PO PRN ×3 (15:34→18:38)
[2016-10-06] MEDS: *HR* Warfarin 3 MG TABLET PO SCH (17:07)
[2016-10-07] MEDS: *HR* SitaGLIPtin 100 MG TABLET PO SCH (08:00)
[2016-10-07] MEDS: *HR* OxyCODONE/APAP 10/325 TABLET PO PRN ×5 (08:00→20:25)
[2016-10-07] MEDS: Gabapentin 100 MG CAPSULE PO SCH ×3 (08:00→20:24)
[2016-10-07] MEDS: Furosemide 40 MG TABLET PO SCH (08:01)
[2016-10-07] MEDS: Insulin LISPRO 300 UNITS/3 ML VIAL SQ SCH ×4 (08:01→23:25)
[2016-10-07] MEDS: *HR* Digoxin 0.25 MG TABLET PO SCH (08:01)
[2016-10-07] MEDS: Baclofen 10 MG TABLET PO SCH ×3 (08:01→20:24)
[2016-10-07] MEDS: METFORMIN HCL 1000 MG PO SCH (08:03)
--- NOTE | 2016-10-07 08:17 | Internal Med Progress Note ---
Date of Encounter: 10/08/16 Time of Encounter: 08:15 - Assessment and plan (1) Chest pain Current Visit: Yes Status: Acute Assessment and plan: Chest pain: -JAKY= 3 - ECHO : EF >50%, Chamber size and wall function normal. Mechanical Aortic valve. - NOted that patient is scheduled for NST - will await for results of NST - IF NST positive then will consult cardiology. 10/07/2016. First part of the stress test is done. Awaiting for the second part and the results of the stress test. If the stress test is positive then we will get cardiology opinion. Qualifiers: Chest pain type: precordial chest pain Qualified Code(s): R07.2 - Precordial pain (2) H/O aortic valve replacement Current Visit: Yes Status: Chronic Assessment and plan: History of aortic valve replacement. INR 2.3 from 2 NO signs of DVT Will continue same dose of coumadin and will check tomorrow morning. 10/07/2016. We will check INR today. (3) Laceration of head Current Visit: Yes Status: Acute Assessment and plan: Syncopal Episode: - patient had syncopal episode and had a fall. - she has laceration over forehead. CT head WNL - S/P CLW suturing - NO active bleeding from wound or clotted blood in wund. - will continue monitoring 10/07/2016. Will clean the wound today. We will apply triple antibiotics. Close observation. Qualifiers: Encounter type: initial encounter Location of open wound of head: scalp Foreign body presence: without foreign body Qualified Code(s): S01.01XA - Laceration without foreign body of scalp, initial encounter (4) Atrial fibrillation Current Visit: Yes Status: Chronic Assessment and plan: In Sinus now. Qualifiers: Atrial fibrillation type: paroxysmal Qualified Code(s): I48.0 - Paroxysmal atrial fibrillation (5) COPD (chronic obstructive pulmonary disease) Current Visit: Yes Status: Chronic Assessment and plan: Stable Qualifiers: COPD type: unspecified COPD Qualified Code(s): J44.9 - Chronic obstructive pulmonary disease, unspecified (6) Type 2 diabetes mellitus Current Visit: Yes Status: Chronic Assessment and plan: Will continue monitor blood sugar. inpatient insulin adjustment Qualifiers: Diabetes mellitus complication status: without complication Diabetes mellitus senior living insulin use: without senior living use Qualified Code(s): E11.9 - Type 2 diabetes mellitus without complications (7) DVT prophylaxis Current Visit: No Status: Acute Assessment and plan: coumadin Medical risk management: patient has mild to moderate risk for worsening in spite of appropriate medications - Subjective Interval history: patient seen and examined. denies chest pain. denies SOB or syncopal episodes in last 12 hours. has fatigue and tired. 10/07/2016 Patient seen and examined. Chart reviewed. Patient denies any complaints. She still feels that she is fatigued and tired. - Constitutional Vitals: Temp Pulse Resp BP Pulse Ox 98.1 F 80 14 115/51 95 10/07/16 06:57 10/07/16 06:57 10/07/16 06:57 10/07/16 06:57 10/07/16 06:57 General appearance: Present: A&O X 3, pleasant, no acute distress, answers questions appropriately - Head Head exam: Present: atraumatic, normocephalic - Eye Eye exam: Present: PERRL, conjuntiva pink, sclera anicteric Pupils: Present: PERRL - Neck Neck exam general surgery: Present: supple, trachea midline. Absent: lymphadenopathy - Respiratory Respiratory exam: Present: CTAB. Absent: accessory muscle use, rales, rhonchi, wheezes - Cardiovascular Cardiovascular exam: Present: RRR, +S1, +S2. Absent: diastolic murmur, gallop, rubs, systolic murmur - GI/Abdominal GI/Abdominal exam: Present: normal bowel sounds, soft, no peritoneal signs. Absent: distended, tenderness - Extremities Exam Extremities exam: Present: warm, radial pulses palpable and symetrical. Absent : calf tenderness, cyanotic, pedal edema - Neurological Exam Neurological exam: Present: CN II-XII intact, oriented X3, no focal deficits. Absent: pronater drift, facial droop, speech deficit - Skin Skin exam: Present: dry, intact Internal Medicine: Result - Labs CBC & Chem 7: 10/06/16 04:30 10/06/16 04:30 - ABG Interpretation ABG results: PT/INR, D-dimer PT 25.6 Seconds (9.4-12.1) H 10/06/16 04:30 Consult Discharge Plan - Plan Referrals: NO,PCP [Primary Care Provider] -
[2016-10-07 08:36] LABS: INR 3.4; Prothrombin Time 38.2 Seconds (9.4-12.1)
--- NOTE | 2016-10-07 11:31 | Carotid Imaging Report ---
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 Findings Carotid Duplex: Right: The right proximal common carotid artery has a PSV of 116 cm/s and a EDV of 17 cm/s. The right mid common carotid artery has a PSV of 125 cm/s and a EDV of 13 cm/s. The right distal common carotid artery has a PSV of 102 cm/s and a EDV of 13 cm/s. The right bifurcation has a PSV of 57 cm/s and a EDV of 9 cm/s. The right proximal internal carotid artery has a PSV of 94 cm/s and a EDV of 13 cm/s. The right mid internal carotid artery has a PSV of 75 cm/s and a EDV of 17 cm/s. The right eca has a PSV of 112 cm/s and a EDV of 8 cm/s. The right vertebral artery has a PSV of 38 cm/s and a EDV of 13 cm/s. The right distal internal carotid artery was not well visualized. Left: The left proximal common carotid artery has a PSV of 138 cm/s and a EDV of 18 cm/s. The left mid common carotid artery has a PSV of 110 cm/s and a EDV of 13 cm/s. The left distal common carotid artery has a PSV of 80 cm/s and a EDV of 16 cm/s. There is nonstenotic plaque in the left bifurcation with a PSV of 57 cm/s and a EDV of 14 cm/s. There is irregular heterogeneous plaque. The left proximal internal carotid artery has a PSV of 42 cm/s and a EDV of 12 cm/s. The left mid internal carotid artery has a PSV of 84 cm/s and a EDV of 23 cm/s. The left distal internal carotid artery has a PSV of 99 cm/s and a EDV of 19 cm/s. The left eca has a PSV of 99 cm/s and a EDV of 13 cm/s. The left vertebral artery has a PSV of 47 cm/s and a EDV of 14 cm/s. Prior Study: No prior study available for comparison. Carotid Results Right PSV EDV Assessment Proximal CCA 116 17 Normal Mid CCA 125 13 Normal Distal CCA 102 13 Normal Bifurcation 57 9 Normal Proximal ICA 94 13 Normal Mid ICA 75 17 Normal ECA 112 8 Normal Vertebral Artery 38 13 Normal Left PSV EDV Assessment Proximal CCA 138 18 Normal Mid CCA 110 13 Normal Distal CCA 80 16 Normal Bifurcation 57 14 Non Stenotic Plaque Proximal ICA 42 12 Normal Mid ICA 84 23 Normal Distal ICA 99 19 Normal ECA 99 13 Normal Vertebral Artery 47 14 Normal Ratio's Right ICA/CCA Ratio: 0.75 ICA/CCA Values: 94/125 Left ICA/CCA Ratio: 0.76 ICA/CCA Values: 84/110 Updated by Ed Atwood MD on 10/07/2016 11:26:23 AM electronically signed on 10/07/2016 11:26:38 AM with status of Final
[2016-10-07] MEDS: Neosporin OINT 1 APPL PACKET TP SCH (17:14)
[2016-10-07] MEDS ORDERED: *HR* LORazepam 2 MG/ML VIAL IVP STA (22:21)
[2016-10-07] MEDS ORDERED: Water for inj. (sterile) 10 ML IV ONE (22:29)
--- NOTE | 2016-10-08 08:56 | Electrocardiograph Report ---
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
[2016-10-08] MEDS: Insulin LISPRO 300 UNITS/3 ML VIAL SQ SCH ×4 (10:06→23:07)
[2016-10-08] MEDS: Baclofen 10 MG TABLET PO SCH ×3 (10:12→20:26)
[2016-10-08] MEDS: Neosporin OINT 1 APPL PACKET TP SCH (10:13)
[2016-10-08] MEDS: Furosemide 40 MG TABLET PO SCH (10:13)
[2016-10-08] MEDS: *HR* Digoxin 0.25 MG TABLET PO SCH (10:13)
[2016-10-08] MEDS: METFORMIN HCL 1000 MG PO SCH (10:13)
[2016-10-08] MEDS: Gabapentin 100 MG CAPSULE PO SCH ×3 (10:13→20:25)
[2016-10-08] MEDS: *HR* SitaGLIPtin 100 MG TABLET PO SCH (10:13)
[2016-10-08] MEDS ORDERED: *HR* LORazepam 2 MG/ML VIAL IVP ONE (15:53)
[2016-10-08] MEDS ORDERED: *HR* Warfarin 5 MG TABLET PO SCH (18:00)
--- NOTE | 2016-10-08 18:36 | Internal Med Progress Note ---
Date of Encounter: 10/08/16 Time of Encounter: 18:34 - Assessment and plan (1) Chest pain Current Visit: Yes Status: Acute Assessment and plan: Chest pain: -JAKY= 3 - ECHO : EF >50%, Chamber size and wall function normal. Mechanical Aortic valve. - NOted that patient is scheduled for NST - will await for results of NST - IF NST positive then will consult cardiology. 10/07/2016. First part of the stress test is done. Awaiting for the second part and the results of the stress test. If the stress test is positive then we will get cardiology opinion. 10/08/2016. Nonstress test is completed. It was a technically difficult study. No obvious ischemic changes noted. We will get patient to follow-up with the cardiology. Qualifiers: Chest pain type: precordial chest pain Qualified Code(s): R07.2 - Precordial pain (2) H/O aortic valve replacement Current Visit: Yes Status: Chronic Assessment and plan: History of aortic valve replacement. INR 2.3 from 2 NO signs of DVT Will continue same dose of coumadin and will check tomorrow morning. 10/07/2016. We will check INR today. 10/08/2016. Patient INR is 3.2. This is a within the therapeutic window. (3) Laceration of head Current Visit: Yes Status: Acute Assessment and plan: Syncopal Episode: - patient had syncopal episode and had a fall. - she has laceration over forehead. CT head WNL - S/P CLW suturing - NO active bleeding from wound or clotted blood in wund. - will continue monitoring 10/07/2016. Will clean the wound today. We will apply triple antibiotics. Close observation. 10/18/2016. The wound on the forehead Looks much better as compared to admission Qualifiers: Encounter type: initial encounter Location of open wound of head: scalp Foreign body presence: without foreign body Qualified Code(s): S01.01XA - Laceration without foreign body of scalp, initial encounter (4) Atrial fibrillation Current Visit: Yes Status: Chronic Assessment and plan: In Sinus now. Qualifiers: Atrial fibrillation type: paroxysmal Qualified Code(s): I48.0 - Paroxysmal atrial fibrillation (5) COPD (chronic obstructive pulmonary disease) Current Visit: Yes Status: Chronic Assessment and plan: Stable Qualifiers: COPD type: unspecified COPD Qualified Code(s): J44.9 - Chronic obstructive pulmonary disease, unspecified (6) Type 2 diabetes mellitus Current Visit: Yes Status: Chronic Assessment and plan: Will continue monitor blood sugar. 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 denies chest pain. denies SOB or syncopal episodes in last 12 hours. has fatigue and tired. 10/07/2016 Patient seen and examined. Chart reviewed. Patient denies any complaints. She still feels that she is fatigued and tired. 10/08/2016. Patient seen and examined. Chart reviewed. Patient denies any complaints. Patient is keen to go to intermediate where she comes from. - Constitutional Vitals: Temp Pulse Resp BP Pulse Ox 97.5 F L 82 16 126/79 95 10/08/16 16:03 10/08/16 16:03 10/08/16 16:03 10/08/16 16:03 10/08/16 16:03 General appearance: Present: A&O X 3, pleasant, no acute distress, answers questions appropriately - Head Head exam: Present: atraumatic, normocephalic - Eye Eye exam: Present: PERRL, conjuntiva pink, sclera anicteric Pupils: Present: PERRL - Neck Neck exam general surgery: Present: supple, trachea midline. Absent: lymphadenopathy - Respiratory Respiratory exam: Present: CTAB. Absent: accessory muscle use, rales, rhonchi, wheezes - Cardiovascular Cardiovascular exam: Present: RRR, +S1, +S2. Absent: diastolic murmur, gallop, rubs, systolic murmur - GI/Abdominal GI/Abdominal exam: Present: normal bowel sounds, soft, no peritoneal signs. Absent: distended, tenderness - Extremities Exam Extremities exam: Present: warm, radial pulses palpable and symetrical. Absent : calf tenderness, cyanotic, pedal edema - Neurological Exam Neurological exam: Present: CN II-XII intact, oriented X3, no focal deficits. Absent: pronater drift, facial droop, speech deficit - Skin Skin exam: Present: dry, intact Internal Medicine: Result - Labs CBC & Chem 7: 10/06/16 04:30 10/06/16 04:30 - ABG Interpretation ABG results: PT/INR, D-dimer PT 38.2 Seconds (9.4-12.1) H 10/07/16 08:26 Consult Discharge Plan - Plan Referrals: NO,PCP [Primary Care Provider] -
[2016-10-08] MEDS: *HR* OxyCODONE/APAP 10/325 TABLET PO PRN (20:26)
[2016-10-09 05:00] LABS: Basophils % 0.4 %; Eosinophils # 0.4 K/mcL (0.0-0.6); Eosinophils % 3.9 %; Hematocrit 35.5 % (35.3-44.9); Hemoglobin 11.8 g/dL (11.5-15.4); Immature Granulocytes % 0.3 % (0-4); Lymphocytes % 22.1 %; Mean Corpuscular HGB Conc 33.2 g/dL (31.6-35.5); Mean Corpuscular Volume 93.2 fL (83.0-100.0); Monocytes # 0.9 K/mcL (0.0-1.3); Monocytes % 9.6 %; Neutrophils # 5.9 K/mcL (1.6-8.9); Platelet Count 168 K/mcL (140-400); Red Blood Count 3.81 M/mcL (3.82-4.97); Red Cell Distribution Width 13.6 % (11.5-14.5); Segmented Neutrophils % 63.7 %
[2016-10-09 05:01] LABS: INR 2.4; Prothrombin Time 27.1 Seconds (9.4-12.1)
[2016-10-09 05:10] LABS: Alanine Aminotransferase 14 Units/L (0-55); Albumin 3.1 g/dL (3.5-5.0); Albumin/Globulin Ratio 0.9 (1.1-2.2); Alkaline Phosphatase 74 Units/L (38-126); Aspartate Amino Transferase 19 Units/L (5-34); BUN/Creatinine Ratio 16 (6-26); Bilirubin,Total 0.6 mg/dL (0.2-1.2); Blood Urea Nitrogen 12 mg/dL (7-20); Calcium 9.1 mg/dL (8.6-10.8); Carbon Dioxide 29 mEq/L (19-29); Chloride 104 mEq/L (98-109); Globulin 3.5 g/dL (2.4-3.5); Glucose 107 mg/dL (70-99); Osmolality,Calculated 290 (280-300); Potassium 3.7 mEq/L (3.5-4.5); Sodium 140 mEq/L (136-145); Total Protein 6.6 g/dL (6.0-8.3); eGFR For African Americans > 60 (> 60); eGFR For Non-African Americans > 60 (> 60)
[2016-10-09] MEDS: METFORMIN HCL 1000 MG PO SCH (08:25)
[2016-10-09] MEDS: Furosemide 40 MG TABLET PO SCH (08:25)
[2016-10-09] MEDS: Insulin LISPRO 300 UNITS/3 ML VIAL SQ SCH ×2 (08:25→12:19)
[2016-10-09] MEDS: *HR* Digoxin 0.25 MG TABLET PO SCH (08:27)
[2016-10-09] MEDS: *HR* SitaGLIPtin 100 MG TABLET PO SCH (08:27)
[2016-10-09] MEDS: Gabapentin 100 MG CAPSULE PO SCH (08:27)
[2016-10-09] MEDS: Baclofen 10 MG TABLET PO SCH (08:27)
[2016-10-09] MEDS: Neosporin OINT 1 APPL PACKET TP SCH (08:27)
[2016-10-09 12:18] VITALS: BP 131/61
--- NOTE | 2016-10-09 13:10 | Discharge Summary ---
Date of Encounter: 10/09/16 Time of Encounter: 13:06 - Discharge Diagnosis (1) Chest pain Priority: Primary Status: Acute Qualifiers: Chest pain type: precordial chest pain Qualified Code(s): R07.2 - Precordial pain (2) H/O aortic valve replacement Priority: Secondary Status: Chronic (3) Laceration of head Priority: Primary Status: Acute Qualifiers: Encounter type: initial encounter Location of open wound of head: scalp Foreign body presence: without foreign body Qualified Code(s): S01.01XA - Laceration without foreign body of scalp, initial encounter (4) Atrial fibrillation Priority: Secondary Status: Chronic Qualifiers: Atrial fibrillation type: paroxysmal Qualified Code(s): I48.0 - Paroxysmal atrial fibrillation (5) COPD (chronic obstructive pulmonary disease) Priority: Secondary Status: Chronic Qualifiers: COPD type: unspecified COPD Qualified Code(s): J44.9 - Chronic obstructive pulmonary disease, unspecified (6) Type 2 diabetes mellitus Priority: Secondary Status: Chronic Qualifiers: Diabetes mellitus complication status: without complication Diabetes mellitus mcfp insulin use: without mcfp use Qualified Code(s): E11.9 - Type 2 diabetes mellitus without complications (7) DVT prophylaxis Priority: Secondary Status: Acute - Discharge Medications Prescriptions: OxyCODONE/APAP 10/325 [Percocet 10/325 MG] 1 each PO QID PRN #14 tablet PRN Reason: Pain Home Medications: Albuterol Sulfate [Proair Hfa] 4 puff IH Q6H PRN 09/28/16 [History] Baclofen [Lioresal] 10 mg PO TID 09/28/16 [History] Digoxin [Lanoxin] 0.25 mg PO DAILY 09/28/16 [History] Donepezil HCl [Aricept] 10 mg PO HS 09/28/16 [History] Donepezil [Aricept] 5 mg PO QAM 09/28/16 [History] Duloxetine HCl [Cymbalta] 60 mg PO DAILY 09/28/16 [History] Esomeprazole Magnesium [Nexium] 40 mg PO QPM 09/28/16 [History] Furosemide [Lasix] 40 mg PO DAILY 09/28/16 [History] Gabapentin [Neurontin] 100 mg PO BID 09/28/16 [History] Gabapentin [Neurontin] 200 mg PO HS 09/28/16 [History] Lactulose 10 gm PO DAILY PRN 09/28/16 [History] Lisinopril [Zestril] 10 mg PO DAILY 09/28/16 [History] Montelukast [Singulair] 10 mg PO DAILY 09/28/16 [History] Nitroglycerin [Nitrostat] 0.4 mg SL Q5M PRN 09/28/16 [History] Simvastatin [Zocor] 20 mg PO HS 09/28/16 [History] SitaGLIPtin [Januvia] 100 mg PO DAILY 09/28/16 [History] Warfarin [Coumadin] 6 mg PO QPM 09/28/16 [History] Levothyroxine [Synthroid] 150 mcg PO DAILY 10/05/16 [History] Metformin HCl [Metformin HCl ER] 1,000 mg PO QAM 10/05/16 [History] Nystatin POWDER [Nystop] 1 appl TP TID 10/05/16 [History] OxyCODONE/APAP 10/325 [Percocet 10/325 MG] 1 each PO QID PRN #14 tablet [Rx] Allergies/Adverse Reactions: Allergies Penicillins [PCN] Allergy (Verified 01/23/16 09:23) Rash Sulfa (Sulfonamide Antibiotics) Allergy (Verified 01/23/16 09:23) Rash azithromycin Adverse Reaction (Verified 09/28/16 20:11) Unknown ECF list Procedures/tests Complete & Pending: Procedures Performed prior 72 hours Category Date Time Status EV carotid duplex imaging BI Routine Y 10/07/16 07:32 Completed Date of admission: 10/05/16 11:44 Primary care physician: PCP NO Consults: 10/05/16 13:15 Consult to Occupational Therapy [CONS] Routine Comment: Evaluate, develop and implement POC Consult to Physical Therapy [CONS] Routine Comment: Evaluate, develop and implement POC 10/05/16 14:34 Consult to Language Arts Teacher [CONS] Routine Reason for SW Consult: d/c planning, from [facility] assisted living-pt unsure if she wants to go back, home o2 thru [facility] Discharging clinician: Deandre Talley - Patient Status Disposition: Transfer SNF Condition: Good Functional capacity at discharge: wheelchair bound Overall status at discharge: patient is progressing back to baseline - Discharge Instructions Follow Up With: NO,PCP [Primary Care Provider] - - Diet and Activity Activity: as per physical therapy, increase activity as tolerated Diet: diabetic diet Interval History: Ms. Devine is a 81 year old female with history of atrial fibrillation, mechanical aortic valve replacement on anticoagulation, was brought in for evaluation of forehead laceration after sustaining a fall. Patient had a recent admission less than a week ago for evaluation of chest pain, however decided to leave AGAINST MEDICAL ADVICE. She requested to go back to her assisted living facility today, however decided to stay for further evaluation at this time. Patient reports that she was walking to the restroom and back when she felt dizzy and fell down yesterday, hitting her forehead and sustaining a bruise and a cut. She also has history of previous falls. She reports intermittent ongoing chest pain for the last 4-5 days, retrosternal pressure-like sensation, nonradiating, associated with leg swelling and some shortness of breath. Although she is oriented to person and place in general, she is unable to provide specific details regarding her medical history. History is also obtained from review of previous medical records and discussion with emergency room physician. It is questionable whether she follows with cardiology or if she does have underlying CHF but she is noted to be on diuretics and long-term anticoagulation. Hospital course: Patient was hospitalized. Cardiology was consulted. Patient underwent stress test. The stress test was negative for any ischemia. Stress test was suggestive of ejection fraction of more than 70%. There were no obvious ischemic findings. artifacts are involved in this study. Patient is according to his last visit. Wound on her forehead. The wound was clean. There is no longer bleeding from the wound. The wound is healing well. We will send patient for ultrasound carotid. It did not show any major obstructive lesion. Patient is mild to moderate confused at her baseline. Her confusion is likely secondary to advanced dementia. I spoke with the patient's family regarding her baseline medical status. Patient's family member told me that her current mental status is same as what the baseline mental status is. Plan: -Patient did not go back to longterm today. -She can participate in physical therapy. -We will like physical therapist decide regarding the plan of action. -Close follow-up with PCP. -Discussed with the patient's family and then they agreed and verbalized understanding. I have given 14 tablets of Percocet on a prescription to this patient. - Time Spent with Patient Total time spent providing and/or coordinating discharge services: - Constitutional Vitals: Temp Pulse Resp BP Pulse Ox 98.1 F 75 18 131/61 95 10/09/16 12:18 10/09/16 12:18 10/09/16 12:18 10/09/16 12:18 10/09/16 12:18 General appearance: Present: A&O X 3, pleasant, no acute distress, answers questions appropriately - Head Head exam: Present: atraumatic, normocephalic - Eye Eye exam: Present: PERRL, conjuntiva pink, sclera anicteric Pupils: Present: PERRL - Neck Neck exam general surgery: Present: supple, trachea midline. Absent: lymphadenopathy - Respiratory Respiratory exam: Present: CTAB. Absent: accessory muscle use, rales, rhonchi, wheezes - Cardiovascular Cardiovascular exam: Present: RRR, +S1, +S2. Absent: diastolic murmur, gallop, rubs, systolic murmur - GI/Abdominal GI/Abdominal exam: Present: normal bowel sounds, soft, no peritoneal signs. Absent: distended, tenderness - Extremities Exam Extremities exam: Present: warm, radial pulses palpable and symetrical. Absent : calf tenderness, cyanotic, pedal edema - Neurological Exam Neurological exam: Present: CN II-XII intact, oriented X3, no focal deficits. Absent: pronater drift, facial droop, speech deficit - Skin Skin exam: Present: dry, intact
--- NOTE | 2016-10-09 13:18 | Physician Discharge Referral ---
ExtendedCare Referral Info Transfer To: SNF - Diagnosis (1) Chest pain Priority: Primary Status: Acute (2) H/O aortic valve replacement Priority: Primary Status: Chronic (3) Laceration of head Priority: Primary Status: Acute (4) Atrial fibrillation Priority: Primary Status: Chronic (5) COPD (chronic obstructive pulmonary disease) Priority: Primary Status: Chronic (6) Type 2 diabetes mellitus Priority: Primary Status: Chronic (7) DVT prophylaxis Status: Acute - Transfer Medications Prescriptions: OxyCODONE/APAP 10/325 [Percocet 10/325 MG] 1 each PO QID PRN #14 tablet PRN Reason: Pain Home Medications: Albuterol Sulfate [Proair Hfa] 4 puff IH Q6H PRN 09/28/16 [History] Baclofen [Lioresal] 10 mg PO TID 09/28/16 [History] Digoxin [Lanoxin] 0.25 mg PO DAILY 09/28/16 [History] Donepezil HCl [Aricept] 10 mg PO HS 09/28/16 [History] Donepezil [Aricept] 5 mg PO QAM 09/28/16 [History] Duloxetine HCl [Cymbalta] 60 mg PO DAILY 09/28/16 [History] Esomeprazole Magnesium [Nexium] 40 mg PO QPM 09/28/16 [History] Furosemide [Lasix] 40 mg PO DAILY 09/28/16 [History] Gabapentin [Neurontin] 100 mg PO BID 09/28/16 [History] Gabapentin [Neurontin] 200 mg PO HS 09/28/16 [History] Lactulose 10 gm PO DAILY PRN 09/28/16 [History] Lisinopril [Zestril] 10 mg PO DAILY 09/28/16 [History] Montelukast [Singulair] 10 mg PO DAILY 09/28/16 [History] Nitroglycerin [Nitrostat] 0.4 mg SL Q5M PRN 09/28/16 [History] Simvastatin [Zocor] 20 mg PO HS 09/28/16 [History] SitaGLIPtin [Januvia] 100 mg PO DAILY 09/28/16 [History] Warfarin [Coumadin] 6 mg PO QPM 09/28/16 [History] Levothyroxine [Synthroid] 150 mcg PO DAILY 10/05/16 [History] Metformin HCl [Metformin HCl ER] 1,000 mg PO QAM 10/05/16 [History] Nystatin POWDER [Nystop] 1 appl TP TID 10/05/16 [History] OxyCODONE/APAP 10/325 [Percocet 10/325 MG] 1 each PO QID PRN #14 tablet [Rx] Allergies/Adverse Reactions: Allergies Penicillins [PCN] Allergy (Verified 01/23/16 09:23) Rash Sulfa (Sulfonamide Antibiotics) Allergy (Verified 01/23/16 09:23) Rash azithromycin Adverse Reaction (Verified 09/28/16 20:11) Unknown ECF list - Respiratory Orders Smoking Cessation: Smoking cessation has been advised. For more information, call the [place] Tobacco Quit Line at 0-377-DQQY-NOW. - Rehabiliation Orders Rehab Orders: Evaluation for Physical Therapy, Evaluation for Occupational Therapy CERTIFICATION: I certify that the transfer of the above named patient to an Extended Care Facility is necessary for the continuing treatment of the diagnosis listed. The above information is true and accurate reflection of patient's current condition. Confidential - Redisclosure prohibited without a patient's written consent.
[2016-10-10] MEDS ORDERED: *HR* SitaGLIPtin 25 MG TABLET PO SCH (08:00)
== END 2016-10-09 16:14 ==
LOC: EMEROO 09:49 → 3BNU 09:49 → SUATTDRO 11:44 → 3BNU 13:14
PROVIDERS: ADMIT Nurse Practitioner Family; ATTEND Internal Medicine

== ENCOUNTER 2016-12-05 10:39 | Observation (INO) ==
--- NOTE | 2016-12-05 10:47 | Emergency Department Note ---
Disposition Clinical Impression: Altered mental status Qualifiers: Altered mental status type: unspecified Qualified Code(s): R41.82 - Altered mental status, unspecified Disposition: Admitted As Inpatient Condition: Fair Referrals: NO,PCP [Non-Partnered Physician] - Forms: ED Satisfaction Letter Time of Disposition: 14:41 Altered Mental Status HPI - General Chief Complaint: ED Altered Mental Status Stated Complaint: AMS Time Seen by Provider: 12/05/16 10:43 Source: patient Mode of arrival: ambulatory Limitations: no limitations Nursing Notes Reviewed: Yes Vital Signs Reviewed: Yes - History of Present Illness HPI Narrative: 81-year-old who comes in from a assisted living with altered mental status. Apparently the living personnel thinks she may have fell in the night. She is on a blood thinner does have some bruising to the forehead. Squjas states that she is essentially unresponsive to their interventions. However on arrival to the emergency department using her name she did open her eyes when I ask how she was doing she says I think okay. 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 confirmed by: caregiver - Related Data Home Medications Medication Instructions Recorded Confirmed Albuterol Sulfate [Proair Hfa] 4 puff IH Q6H PRN 09/28/16 10/05/16 Baclofen [Lioresal] 10 mg PO TID 09/28/16 10/05/16 Digoxin [Lanoxin] 0.25 mg PO DAILY 09/28/16 10/05/16 Donepezil HCl [Aricept] 10 mg PO HS 09/28/16 10/05/16 Donepezil [Aricept] 5 mg PO QAM 09/28/16 10/05/16 Duloxetine HCl [Cymbalta] 60 mg PO DAILY 09/28/16 10/05/16 Esomeprazole Magnesium [Nexium] 40 mg PO QPM 09/28/16 10/05/16 Furosemide [Lasix] 40 mg PO DAILY 09/28/16 10/05/16 Gabapentin [Neurontin] 100 mg PO BID 09/28/16 10/05/16 Gabapentin [Neurontin] 200 mg PO HS 09/28/16 10/05/16 Lactulose 10 gm PO DAILY PRN 09/28/16 10/05/16 Lisinopril [Zestril] 10 mg PO DAILY 09/28/16 10/05/16 Montelukast [Singulair] 10 mg PO DAILY 09/28/16 10/05/16 Nitroglycerin [Nitrostat] 0.4 mg SL Q5M PRN 09/28/16 10/05/16 Simvastatin [Zocor] 20 mg PO HS 09/28/16 10/05/16 SitaGLIPtin [Januvia] 100 mg PO DAILY 09/28/16 10/05/16 Warfarin [Coumadin] 6 mg PO QPM 09/28/16 10/05/16 Levothyroxine [Synthroid] 150 mcg PO DAILY 10/05/16 10/05/16 Metformin HCl [Metformin HCl ER] 1,000 mg PO QAM 10/05/16 10/05/16 Nystatin POWDER [Nystop] 1 appl TP TID 10/05/16 10/05/16 Previous Rx's Medication Instructions Recorded OxyCODONE/APAP 10/325 [Percocet 1 each PO QID PRN #14 tablet 10/09/16 10/325 MG] Allergies Allergy/AdvReac Type Severity Reaction Status Date / Time Penicillins [PCN] Allergy Rash Verified 01/23/16 09:23 Sulfa (Sulfonamide Allergy Rash Verified 01/23/16 09:23 Antibiotics) azithromycin AdvReac Unknown Verified 09/28/16 20:11 Limitations: ROS unobtainable due to patients medical condition Past Medical History - Past Medical History Medical history: Reports: arthritis, atrial fibrillation, cardiomyopathy, COPD, dementia, diabetes, GERD, hyperlipidemia, hypertension, renal disease, thyroid disease, valvular heart disease (Aortic valve replacement), other (Urinary incontinence) Surgical history: Reports: appendectomy, , heart valve replacement, other Psychiatric history: Reports: no psych history LAB ASSISTANT history: Reports: no LAB ASSISTANT history - Social History Smoking Status: Never smoker Smokeless Tobacco Status: No Alcohol use: Reports: none Drug use: Reports: none Physical Exam - General Limitations: altered mental status General appearance: other (Somnolent but arousable) - Head Head exam: other (Bruised forehead) - Eye Eye exam: Present: normal appearance, PERRL, EOMI - Neck Neck exam: Present: normal inspection, full ROM, trachea midline - Chest Chest inspection: Present: normal inspection, symmetric chest wall rise - Respiratory Respiratory exam: Present: normal lung sounds bilaterally - Abdominal Exam Abdominal exam: Present: soft, Non-Tender. Absent: tenderness, distention, guarding, rebound, rigidity - Extremities Exam Extremities exam: Present: normal inspection, full ROM. Absent: tenderness, pedal edema - Expanded Lower Extremity Exam Neurovascular/Tendon exam: Present: normal capillary refill. Absent: motor deficit, sensory deficit, tendon deficit Gait: not tested/not observed - Back Exam Back exam: Present: normal inspection, full ROM. Absent: tenderness - Neurological Exam Neurological exam: Present: other (But arousable) Course - Reevaluation(s) Reevaluation #1: The patient is improved at this point in time I don't have an etiology of her period of decreased responsiveness. The patient is a full code we will admit for observation to see if there is any recurrence. He was concerned that she fell and hit her head she does have a small amount of bruising on her forehead. The differential would be a seizure with postictal state. Time: 14:08 - Consultations Consultation #1: Discussed with Shoshana Pompa nurse practitioner, admit. Time: 14:41 Vital Signs Temperature 97.6 F 12/05/16 10:44 Pulse Rate 71 12/05/16 10:44 Respiratory Rate 14 12/05/16 10:44 Blood Pressure 144/64 12/05/16 10:44 O2 Sat by Pulse Oximetry 90 L 12/05/16 10:44 Temperature 97.6 F 12/05/16 10:44 Pulse Rate 83 12/05/16 14:02 Respiratory Rate 16 12/05/16 14:02 Blood Pressure 135/63 12/05/16 14:02 O2 Sat by Pulse Oximetry 98 12/05/16 14:02 Oxygen Delivery Oxygen Delivery Room Air Altered Mental Status - Differential Diagnosis Likely: altered mental status - Lab Data Lab results reviewed: Yes I reviewed the patient's lab results. Result diagrams: 12/05/16 12:27 12/05/16 12:27 Lab Results 12/05/16 12/05/16 12/05/16 Range/Units 11:48 12:27 12:27 WBC 8.6 (4.3-11.1) K/mcL RBC 5.00 H (3.82-4.97) M/mcL Hgb 14.4 (11.5-15.4) g/dL Hct 44.4 (35.3-44.9) % MCV 88.8 (83.0-100.0) fL MCH 28.8 (28.0-33.3) pg MCHC 32.4 (31.6-35.5) g/dL RDW 13.1 (11.5-14.5) % Plt Count 151 (140-400) K/mcL MPV 10.6 (9.4-12.4) fL Immature Gran % 0.1 (0-4) % Seg Neutrophils % 76.4 % Lymphocytes % 14.3 % Monocytes % 6.5 % Eosinophils % 2.1 % Basophils % 0.6 % Neutrophils # 6.6 (1.6-8.9) K/mcL Lymphocytes # 1.2 (0.6-4.6) K/mcL Monocytes # 0.6 (0.0-1.3) K/mcL Eosinophils # 0.2 (0.0-0.6) K/mcL Basophils # 0.1 (0.0-0.2) K/mcL Immature Plt Fraction 6.3 H (1.1-6.1) % PT 27.3 H (9.4-12.1) Seconds INR 2.5 APTT 48.6 H (26.0-36.0) Seconds Sodium 139 (136-145) mEq/L Potassium 3.9 (3.5-4.5) mEq/L Chloride 102 (98-109) mEq/L Carbon Dioxide 29 (19-29) mEq/L BUN 9 (7-20) mg/dL Creatinine 0.78 (0.57-1.11) mg/dL Est GFR ( Amer) > 60 (> 60) Est GFR (Non-Af Amer) > 60 (> 60) BUN/Creatinine Ratio 12 (6-26) Glucose 100 H (70-99) mg/dL Calculated Osmolality 287 (280-300) Calcium 9.1 (8.6-10.8) mg/dL Total Bilirubin 0.7 (0.2-1.2) mg/dL Direct Bilirubin 0.4 (0.0-0.5) mg/dL Indirect Bilirubin 0.3 (0.0-1.2) mg/dL AST 20 (5-34) Units/L ALT 14 (0-55) Units/L Alkaline Phosphatase 96 (38-126) Units/L Ammonia (18-72) mcmol/L Troponin I (0-0.03) ng/mL Serum Total Protein 7.5 (6.0-8.3) g/dL Albumin 3.4 L (3.5-5.0) g/dL Globulin 4.1 H (2.4-3.5) g/dL Albumin/Globulin Ratio 0.8 L (1.1-2.2) Urine Color (Yellow) Urine Clarity (Clear) Urine pH (5.0-8.0) pH Units Ur Specific [place] (1.010-1.025) Urine Protein (Neg-Trace) mg/dL Urine Glucose (UA) (Normal) mg/dL Urine Ketones (Negative) mg/dL Urine Blood (Negative) Urine Nitrite (Negative) Urine Bilirubin (Negative) Urine Urobilinogen (Normal) mg/dL Ur Leukocyte Esterase (Negative) Urine Microscopic RBC (0-3) per hpf Urine Microscopic WBC (0-3) per hpf Ur Squamous Epith Cells (None-Few) per lpf Urine Bacteria (None-Few) per hpf Hyaline Casts (None-Few) per lpf Ur Culture Indicated? (NO) Urine Opiates Screen (Syxaag=007) ng/mL Ur Barbiturates Screen (Mkkmhl=183) ng/mL Ur Phencyclidine Scrn (Cutoff=25) ng/mL Ur Amphetamines Screen (Xmehhb=9645) ng/mL U Benzodiazepines Scrn (Mkbakp=793) ng/mL Urine Cocaine Screen (Cutoff= 300) ng/mL U Marijuana (THC) Screen (Cutoff = 50) ng/mL 12/05/16 12/05/16 12/05/16 Range/Units 12:27 12:27 13:20 WBC (4.3-11.1) K/mcL RBC (3.82-4.97) M/mcL Hgb (11.5-15.4) g/dL Hct (35.3-44.9) % MCV (83.0-100.0) fL MCH (28.0-33.3) pg MCHC (31.6-35.5) g/dL RDW (11.5-14.5) % Plt Count (140-400) K/mcL MPV (9.4-12.4) fL Immature Gran % (0-4) % Seg Neutrophils % % Lymphocytes % % Monocytes % % Eosinophils % % Basophils % % Neutrophils # (1.6-8.9) K/mcL Lymphocytes # (0.6-4.6) K/mcL Monocytes # (0.0-1.3) K/mcL Eosinophils # (0.0-0.6) K/mcL Basophils # (0.0-0.2) K/mcL Immature Plt Fraction (1.1-6.1) % PT (9.4-12.1) Seconds INR APTT (26.0-36.0) Seconds Sodium (136-145) mEq/L Potassium (3.5-4.5) mEq/L Chloride (98-109) mEq/L Carbon Dioxide (19-29) mEq/L BUN (7-20) mg/dL Creatinine (0.57-1.11) mg/dL Est GFR ( Amer) (> 60) Est GFR (Non-Af Amer) (> 60) BUN/Creatinine Ratio (6-26) Glucose (70-99) mg/dL Calculated Osmolality (280-300) Calcium (8.6-10.8) mg/dL Total Bilirubin (0.2-1.2) mg/dL Direct Bilirubin (0.0-0.5) mg/dL Indirect Bilirubin (0.0-1.2) mg/dL AST (5-34) Units/L ALT (0-55) Units/L Alkaline Phosphatase (38-126) Units/L Ammonia 16 L (18-72) mcmol/L Troponin I 0.01 (0-0.03) ng/mL Serum Total Protein (6.0-8.3) g/dL Albumin (3.5-5.0) g/dL Globulin (2.4-3.5) g/dL Albumin/Globulin Ratio (1.1-2.2) Urine Color Yellow (Yellow) Urine Clarity Cloudy A (Clear) Urine pH 7.0 (5.0-8.0) pH Units Ur Specific [place] 1.007 L (1.010-1.025) Urine Protein Negative (Neg-Trace) mg/dL Urine Glucose (UA) Normal (Normal) mg/dL Urine Ketones Negative (Negative) mg/dL Urine Blood Negative (Negative) Urine Nitrite Negative (Negative) Urine Bilirubin Negative (Negative) Urine Urobilinogen Normal (Normal) mg/dL Ur Leukocyte Esterase Trace H (Negative) Urine Microscopic RBC 0-3 (0-3) per hpf Urine Microscopic WBC 0-3 (0-3) per hpf Ur Squamous Epith Cells Many H (None-Few) per lpf Urine Bacteria None Seen (None-Few) per hpf Hyaline Casts None Seen (None-Few) per lpf Ur Culture Indicated? YES A (NO) Urine Opiates Screen (Stmqlf=521) ng/mL Ur Barbiturates Screen (Wnpybw=426) ng/mL Ur Phencyclidine Scrn (Cutoff=25) ng/mL Ur Amphetamines Screen (Himrfe=5664) ng/mL U Benzodiazepines Scrn (Dbrkjc=822) ng/mL Urine Cocaine Screen (Cutoff= 300) ng/mL U Marijuana (THC) Screen (Cutoff = 50) ng/mL 12/05/16 Range/Units 13:20 WBC (4.3-11.1) K/mcL RBC (3.82-4.97) M/mcL Hgb (11.5-15.4) g/dL Hct (35.3-44.9) % MCV (83.0-100.0) fL MCH (28.0-33.3) pg MCHC (31.6-35.5) g/dL RDW (11.5-14.5) % Plt Count (140-400) K/mcL MPV (9.4-12.4) fL Immature Gran % (0-4) % Seg Neutrophils % % Lymphocytes % % Monocytes % % Eosinophils % % Basophils % % Neutrophils # (1.6-8.9) K/mcL Lymphocytes # (0.6-4.6) K/mcL Monocytes # (0.0-1.3) K/mcL Eosinophils # (0.0-0.6) K/mcL Basophils # (0.0-0.2) K/mcL Immature Plt Fraction (1.1-6.1) % PT (9.4-12.1) Seconds INR APTT (26.0-36.0) Seconds Sodium (136-145) mEq/L Potassium (3.5-4.5) mEq/L Chloride (98-109) mEq/L Carbon Dioxide (19-29) mEq/L BUN (7-20) mg/dL Creatinine (0.57-1.11) mg/dL Est GFR ( Amer) (> 60) Est GFR (Non-Af Amer) (> 60) BUN/Creatinine Ratio (6-26) Glucose (70-99) mg/dL Calculated Osmolality (280-300) Calcium (8.6-10.8) mg/dL Total Bilirubin (0.2-1.2) mg/dL Direct Bilirubin (0.0-0.5) mg/dL Indirect Bilirubin (0.0-1.2) mg/dL AST (5-34) Units/L ALT (0-55) Units/L Alkaline Phosphatase (38-126) Units/L Ammonia (18-72) mcmol/L Troponin I (0-0.03) ng/mL Serum Total Protein (6.0-8.3) g/dL Albumin (3.5-5.0) g/dL Globulin (2.4-3.5) g/dL Albumin/Globulin Ratio (1.1-2.2) Urine Color (Yellow) Urine Clarity (Clear) Urine pH (5.0-8.0) pH Units Ur Specific [place] (1.010-1.025) Urine Protein (Neg-Trace) mg/dL Urine Glucose (UA) (Normal) mg/dL Urine Ketones (Negative) mg/dL Urine Blood (Negative) Urine Nitrite (Negative) Urine Bilirubin (Negative) Urine Urobilinogen (Normal) mg/dL Ur Leukocyte Esterase (Negative) Urine Microscopic RBC (0-3) per hpf Urine Microscopic WBC (0-3) per hpf Ur Squamous Epith Cells (None-Few) per lpf Urine Bacteria (None-Few) per hpf Hyaline Casts (None-Few) per lpf Ur Culture Indicated? (NO) Urine Opiates Screen Negative (Ofgosz=708) ng/mL Ur Barbiturates Screen Negative (Nzfzxq=278) ng/mL Ur Phencyclidine Scrn Negative (Cutoff=25) ng/mL Ur Amphetamines Screen Negative (Elotss=0783) ng/mL U Benzodiazepines Scrn Negative (Ppfljy=212) ng/mL Urine Cocaine Screen Negative (Cutoff= 300) ng/mL U Marijuana (THC) Screen Negative (Cutoff = 50) ng/mL - Radiology Data Radiology results reviewed: Yes I reviewed the patient's radiology results. Chest X-Ray 12/05/16 10:43 IMPRESSION: No acute cardiopulmonary process. D/ / 12/05/2016 11:31:22 Bernadine Barrett MD / eberry Interpreting Provider: Bernadine Barrett MD Head CT 12/05/16 10:44 IMPRESSION: No acute intracranial abnormality. D/ / 12/05/2016 11:57:33 Bell Leavitt MD / bcarter Interpreting Provider: Bell Leavitt MD Cervical Spine CT 12/05/16 10:47 IMPRESSION: No acute abnormality of the cervical spine. Status post C4-6 anterior instrumented fusion. D/ / Ryan Adamson MD / Ryan Adamson MD Interpreting Provider: Ryan Adamson MD - EKG Data EKG attestation: Yes I reviewed and interpreted this EKG. EKG shows normal: sinus rhythm Bivalve/QRS: LAHB/LAFB Heart block present: 1st Degree When compared to previous EKG there are: no significant changes () Interpretation: no acute changes TPA Checklist - LKW: 3-4.5 hrs Add. Contraindications Patient/family understanding: The patient/family members have been counseled and understood the risk, benefit , and alternatives of treatment.
[2016-12-05 12:00] LABS: INR 2.5; Prothrombin Time 27.3 Seconds (9.4-12.1)
[2016-12-05 12:02] LABS: Activated Partial Thrombo Time 48.6 Seconds (26.0-36.0)
[2016-12-05 12:34] LABS: Basophils # 0.1 K/mcL (0.0-0.2); Basophils % 0.6 %; Eosinophils # 0.2 K/mcL (0.0-0.6); Eosinophils % 2.1 %; Hematocrit 44.4 % (35.3-44.9); Hemoglobin 14.4 g/dL (11.5-15.4); Immature Granulocytes % 0.1 % (0-4); Immature Platelets 6.3 % (1.1-6.1); Lymphocytes # 1.2 K/mcL (0.6-4.6); Lymphocytes % 14.3 %; Mean Corpuscular HGB Conc 32.4 g/dL (31.6-35.5); Mean Corpuscular Hemoglobin 28.8 pg (28.0-33.3); Mean Corpuscular Volume 88.8 fL (83.0-100.0); Mean Platelet Volume 10.6 fL (9.4-12.4); Monocytes # 0.6 K/mcL (0.0-1.3); Monocytes % 6.5 %; Neutrophils # 6.6 K/mcL (1.6-8.9); Platelet Count 151 K/mcL (140-400); Red Cell Distribution Width 13.1 % (11.5-14.5); Segmented Neutrophils % 76.4 %
[2016-12-05 12:47] LABS: Alanine Aminotransferase 14 Units/L (0-55); Albumin 3.4 g/dL (3.5-5.0); Albumin/Globulin Ratio 0.8 (1.1-2.2); Alkaline Phosphatase 96 Units/L (38-126); Aspartate Amino Transferase 20 Units/L (5-34); BUN/Creatinine Ratio 12 (6-26); Bilirubin,Direct 0.4 mg/dL (0.0-0.5); Bilirubin,Indirect 0.3 mg/dL (0.0-1.2); Bilirubin,Total 0.7 mg/dL (0.2-1.2); Blood Urea Nitrogen 9 mg/dL (7-20); Calcium 9.1 mg/dL (8.6-10.8); Carbon Dioxide 29 mEq/L (19-29); Chloride 102 mEq/L (98-109); Globulin 4.1 g/dL (2.4-3.5); Glucose 100 mg/dL (70-99); Osmolality,Calculated 287 (280-300); Potassium 3.9 mEq/L (3.5-4.5); Sodium 139 mEq/L (136-145); Total Protein 7.5 g/dL (6.0-8.3); eGFR For African Americans > 60 (> 60); eGFR For Non-African Americans > 60 (> 60)
[2016-12-05 13:30] LABS: Bilirubin,Urine Negative (Negative); Blood,Urine Negative (Negative); Clarity,Urine Cloudy (Clear); Color,Urine Yellow (Yellow); Glucose,Urine (UA) Normal (Normal); Ketones,Urine Negative (Negative); Leukocyte Esterase,Urine Trace (Negative); Nitrite,Urine Negative (Negative); Protein,Urine Negative (Neg-Trace); Specific Gravity,Urine 1.007 (1.010-1.025); Urobilinogen,Urine Normal (Normal)
[2016-12-05 13:32] LABS: Bacteria,Urine None Seen per hpf (None-Few); Hyaline Casts,Urine None Seen per lpf (None-Few); RBC,Urine 0-3 per hpf (0-3); Squamous Epithelial Cell,Urine Many per lpf (None-Few); WBC,Urine 0-3 per hpf (0-3)
[2016-12-05 13:36] LABS: Amphetamine Screen,Urine Negative ng/mL (Cutoff=1000); Barbiturate Screen,Urine Negative ng/mL (Cutoff=200); Benzodiazepines Screen,Urine Negative ng/mL (Cutoff=200); Cannabinoid Screen,Urine Negative ng/mL (Cutoff = 50); Cocaine Screen,Urine Negative ng/mL (Cutoff= 300); Opiate Screen,Urine Negative ng/mL (Cutoff=300); Phencyclidine Screen,Urine Negative ng/mL (Cutoff=25)
[2016-12-05] MEDS ORDERED: Acetaminophen 325 MG TABLET PO PRN ×2 (18:35→18:40)
[2016-12-05] MEDS ORDERED: Nitroglycerin 0.4 MG TAB.SUBL SL PRN (18:35)
[2016-12-05] MEDS ORDERED: Ondansetron 4 MG/2 ML VIAL IVP PRN (18:40)
[2016-12-05] MEDS ORDERED: Naloxone 0.4 MG/ML INJ IVP PRN (18:40)
[2016-12-05] MEDS ORDERED: *HR* Warfarin 3 MG TABLET PO SCH (18:45)
[2016-12-05] MEDS ORDERED: 0.9 % Sodium Chloride 1,000 ML IVC SCH (18:45)
--- NOTE | 2016-12-05 18:46 | Internal Med History&Physical ---
Date of Encounter: 12/05/16 Time of Encounter: 16:00 Assessment and Plan (1) Risk for falls Current visit: Yes Status: Acute We will institute fall precautions. (2) Polypharmacy Current visit: Yes Status: Acute Could have contributed to her altered mental status. I recommend holding any potential sedative medications or medications that can impair consciousness. I will hold baclofen for now. (3) Altered mental status Current visit: Yes Status: Acute No clear cause available from the initial workup and therefore a continued workup and to the hospital as needed. I will obtain an MRI of the brain to rule out brain stem lesion and to also evaluate for possible stroke. It was also suggested and it is possible that she was presented and a post ictal state. She does not have a diagnosis of seizure disorder which could suffered a witnessed seizure. We will obtain EEG and institute seizure precautions for now. Monitor patient neurologically every 2-4 hours. Qualifiers: Altered mental status type: disorientation Qualified Code(s): R41.0 - Disorientation, unspecified (4) DVT prophylaxis Current visit: No Status: Acute Therapeutic on Coumadin. (5) Warfarin anticoagulation Current visit: No Status: Acute Continue this. Daily INR. (6) Atrial fibrillation Current visit: No Status: Chronic Continue home medications. Qualifiers: Atrial fibrillation type: paroxysmal Qualified Code(s): I48.0 - Paroxysmal atrial fibrillation (7) Dementia Current visit: No Status: Chronic Continue with Aricept. Qualifiers: Dementia type: Alzheimer's disease Alzheimer's disease onset: late-onset Dementia behavioral disturbance: without behavioral disturbance Qualified Code (s): G30.1 - Alzheimer's disease with late onset; F02.80 - Dementia in other diseases classified elsewhere without behavioral disturbance (8) Hypertension Current visit: No Status: Chronic Resume home meds. Qualifiers: Hypertension type: essential hypertension Qualified Code(s): I10 - Essential (primary) hypertension (9) Hypothyroidism Current visit: No Status: Chronic Check TSH and free T4 to rule out hypothyroidism as a possible cause for her altered mental status in the context of possible myxedema. Qualifiers: Hypothyroidism type: acquired Qualified Code(s): E03.9 - Hypothyroidism, unspecified (10) Type 2 diabetes mellitus Current visit: No Status: Chronic Stop oral meds for now. Start low-dose insulin sliding scale. Qualifiers: Diabetes mellitus complication status: without complication Diabetes mellitus retirement insulin use: without retirement use Qualified Code(s): E11.9 - Type 2 diabetes mellitus without complications Internal Medicine - H&P: HPI Chief complaint: altered menal status Admitted From: Emergency Dept Plans for Post Hospital Care: Home History of present illness: Ms. Devine is a 81 year old female who was brought to the hospital for evaluation of altered mental status. Patient is mildly confused at this time but she has very poor recollection of the events leading up to her presentation. She has baseline dementia and therefore the history is very limited from the patient. Per the ED physician he states that when she was brought and patient was obtunded and difficult to arouse and severely altered. Over the last 2 hours her mental status has been improved. She denies headache visual loss hearing loss chest pain nausea vomiting diarrhea. She reports having suffered a fall about 1 week ago but denies loss of consciousness. Review of systems, family history and social history could not be obtained due to patient's altered mental status secondary to dementia Past Med Surg Social Fam HX - Past Medical History Medical history: arthritis, atrial fibrillation, cardiomyopathy, COPD, dementia , diabetes, GERD, hyperlipidemia, hypertension, renal disease, thyroid disease, valvular heart disease, other Psychiatric history: no psych history - Past Surgical History Surgical History: appendectomy, , heart valve replacement, other - Social History Smoking Status: Never smoker Smokeless Tobacco Status: No Alcohol use: none Drug use: none - Family History Father History Unknown: Yes Living Status: Internal Medicine - H&P: Meds Albuterol Sulfate [Proair Hfa] 4 puff IH Q6H PRN 09/28/16 [History] Baclofen [Lioresal] 10 mg PO TID 09/28/16 [History] Digoxin [Lanoxin] 0.25 mg PO DAILY 09/28/16 [History] Donepezil HCl [Aricept] 10 mg PO HS 09/28/16 [History] Donepezil [Aricept] 5 mg PO QAM 09/28/16 [History] Duloxetine HCl [Cymbalta] 60 mg PO DAILY 09/28/16 [History] Esomeprazole Magnesium [Nexium] 40 mg PO QPM 09/28/16 [History] Furosemide [Lasix] 40 mg PO DAILY 09/28/16 [History] Lactulose 10 gm PO DAILY PRN 09/28/16 [History] Lisinopril [Zestril] 10 mg PO DAILY 09/28/16 [History] Montelukast [Singulair] 10 mg PO DAILY 09/28/16 [History] Nitroglycerin [Nitrostat] 0.4 mg SL Q5M PRN 09/28/16 [History] Simvastatin [Zocor] 20 mg PO HS 09/28/16 [History] SitaGLIPtin [Januvia] 100 mg PO DAILY 09/28/16 [History] Warfarin [Coumadin] 3 mg PO [id number] 09/28/16 [History] Levothyroxine [Synthroid] 150 mcg PO QAM 10/05/16 [History] Metformin HCl [Metformin HCl ER] 1,000 mg PO QAM 10/05/16 [History] Nystatin POWDER [Nystop] 1 appl TP TID 10/05/16 [History] Acetaminophen [Tylenol] 650 mg PO Q4H PRN 12/05/16 [History] LORazepam [Ativan] 0.5 mg PO BID 12/05/16 [History] Simethicone 30 ml PO Q4H PRN 12/05/16 [History] Warfarin Sodium [Coumadin] 6 mg PO MOTH 12/05/16 [History] Allergies Penicillins [PCN] Allergy (Verified 01/23/16 09:23) Rash Sulfa (Sulfonamide Antibiotics) Allergy (Verified 01/23/16 09:23) Rash azithromycin Adverse Reaction (Verified 09/28/16 20:11) Unknown ECF list All Systems PM: A 10-system review of systems was performed and is negative for pertinent findings except as documented above in the HPI. - Constitutional Vitals: Temp Pulse Resp BP Pulse Ox 97.9 F 73 15 118/58 100 12/05/16 17:36 12/05/16 17:36 12/05/16 17:36 12/05/16 17:36 12/05/16 17:44 General appearance: Present: A&O X 2 - Eye Eye exam: Present: PERRL, conjuntiva pink, sclera anicteric Pupils: Present: PERRL - Respiratory Respiratory exam: Present: CTAB. Absent: accessory muscle use, rales, rhonchi, wheezes - Cardiovascular Cardiovascular exam: Present: RRR, +S1, +S2. Absent: diastolic murmur, gallop, rubs, systolic murmur - GI/Abdominal GI/Abdominal exam: Present: normal bowel sounds, soft, no peritoneal signs. Absent: distended, tenderness - Extremities Exam Extremities exam: Present: warm, radial pulses palpable and symetrical. Absent : calf tenderness, cyanotic, pedal edema - Neurological Exam Neurological exam: Present: CN II-XII intact, oriented X3, no focal deficits. Absent: pronater drift, facial droop, speech deficit - Skin Skin exam: Present: dry, intact Internal Med - H&P Results - Labs CBC & Chem 7: 12/05/16 12:27 12/05/16 12:27
[2016-12-05 19:42] LABS: Thyroid Stimulating Hormone 0.095 mcIU/mL (0.350-4.840)
[2016-12-05] MEDS: Nystatin POWDER 30 GM BOTTLE TP SCH (21:16)
[2016-12-05] MEDS: *HR* LORazepam 0.5 MG TABLET PO SCH (21:16)
--- NOTE | 2016-12-06 03:22 | Electrocardiograph Report ---
[facility] Test Date: 2016-12-05 Pat Name: Angelica Devine Department: 103 Room: 3B22 Gender: F Emt B: : 1935 Requested By: Ruperto Reeves Order Number: [id number] Reading MD: Elliott Arboleda MD Measurements Intervals [place] Rate: 77 P: 60 [place]: 222 QRS: -68 QRSD: 120 T: 91 QT: 387 QTc: 418 Interpretive Statements SINUS RHYTHM LEFT ANTERIOR FASCICULAR BLOCK LEFT VENTRICULAR HYPERTROPHY AND ST-T CHANGE Electronically Signed On 12-06-2016 3:21:27 EST by Elliott Arboleda MD
[2016-12-06 04:52] LABS: Basophils # 0.1 K/mcL (0.0-0.2); Basophils % 0.6 %; Eosinophils # 0.3 K/mcL (0.0-0.6); Eosinophils % 2.8 %; Hematocrit 37.4 % (35.3-44.9); Immature Granulocytes % 0.3 % (0-4); Lymphocytes # 1.9 K/mcL (0.6-4.6); Lymphocytes % 20.4 %; Mean Corpuscular HGB Conc 32.6 g/dL (31.6-35.5); Mean Corpuscular Hemoglobin 29.5 pg (28.0-33.3); Mean Corpuscular Volume 90.3 fL (83.0-100.0); Mean Platelet Volume 11.2 fL (9.4-12.4); Monocytes # 0.7 K/mcL (0.0-1.3); Monocytes % 7.5 %; Neutrophils # 6.5 K/mcL (1.6-8.9); Platelet Count 162 K/mcL (140-400); Red Blood Count 4.14 M/mcL (3.82-4.97); Red Cell Distribution Width 13.2 % (11.5-14.5); Segmented Neutrophils % 68.4 %
[2016-12-06 05:13] LABS: BUN/Creatinine Ratio 15 (6-26); Blood Urea Nitrogen 10 mg/dL (7-20); Calcium 8.5 mg/dL (8.6-10.8); Carbon Dioxide 29 mEq/L (19-29); Chloride 105 mEq/L (98-109); Glucose 95 mg/dL (70-99); Magnesium 1.6 mg/dL (1.6-2.6); Osmolality,Calculated 289 (280-300); Potassium 3.8 mEq/L (3.5-4.5); Sodium 140 mEq/L (136-145); eGFR For African Americans > 60 (> 60); eGFR For Non-African Americans > 60 (> 60)
[2016-12-06 05:17] LABS: Hemoglobin 12.2 g/dL (11.5-15.4)
--- NOTE | 2016-12-06 09:58 | Neurology - Consult Note ---
Date of Encounter: 12/06/16 Time of Encounter: 09:55 Assessment and Plan (1) Altered mental status Current Visit: Yes Status: Acute The patient experiences baseline dementia without behavioral disturbances. The patient appears lucid with the exception of where she lived as well as the current date. The patient answered most questions correctly. The patient states she would like to go home at this time and continued to insist illness. The patient had a negative workup in the emergency department to include CT of the brain. The patient has no previous history of seizures that she can recall. The patient is on anticoagulation therapy at this time with an INR 1 day ago of 2.5. EEG is currently pending. The patient has no focalized deficits on examination and neurologic exam is benign with the exception of the patient's orientation. We will continue to monitor the patient. The patient's altered mental status is likely associated with polypharmacy. The patient's medications that had any ability to sedate were discontinued upon admission. The patient's clinical symptoms have continued to improve since. Qualifiers: Altered mental status type: disorientation Qualified Code(s): R41.0 - Disorientation, unspecified (2) Dementia Current Visit: No Status: Chronic Qualifiers: Dementia type: Alzheimer's disease Alzheimer's disease onset: late-onset Dementia behavioral disturbance: without behavioral disturbance Qualified Code (s): G30.1 - Alzheimer's disease with late onset; F02.80 - Dementia in other diseases classified elsewhere without behavioral disturbance (3) Atrial fibrillation Current Visit: No Status: Chronic Patient currently on warfarin therapy. Recent INR 1 day ago was 2.5. Qualifiers: Atrial fibrillation type: paroxysmal Qualified Code(s): I48.0 - Paroxysmal atrial fibrillation (4) Hypertension Current Visit: No Status: Chronic Qualifiers: Hypertension type: essential hypertension Qualified Code(s): I10 - Essential (primary) hypertension (5) Type 2 diabetes mellitus Current Visit: No Status: Chronic Qualifiers: Diabetes mellitus complication status: without complication Diabetes mellitus custodial insulin use: without intermodal customer service use Qualified Code(s): E11.9 - Type 2 diabetes mellitus without complications History of Present Illness Chief complaint: Alteration in mentation HPI: Ms. Devine is a 81 year old female with history of baseline dementia arrives to [facility] emergency department one day ago after the patient was having some alteration in mentation from baseline at [facility]. The patient had apparently arrived to the emergency department and was lethargic. The patient was responding slightly to verbal cues. The patient 's workup in the emergency department demonstrated no acute findings. The patient was admitted to the hospital for alteration in mentation. The patient denies any complaints other than just not recalling what occurred prior to arrival to the emergency department yesterday. On examination today the patient is sitting up in bed and able to elicit that she was in the hospital, who she was and her children. She was unable to elicit the year or the fact that she lives at an extended care facility. She does not recall the events leading up to the admission to the hospital. However, the patient does feel as though she would like to go home at this time and adamantly insists on it currently. She denies any complaints at this time including chest pain, dizziness, paresthesias, weakness that is focalized or generalized. The patient currently is on warfarin therapy for atrial fibrillation/heart valve replacement. Past Med Surg Social Fam HX - Past Medical History Attestation: Yes The following information was validated with the patient. Source: patient, old records reviewed Medical history: arthritis, atrial fibrillation, cardiomyopathy, COPD, dementia , diabetes, GERD, hyperlipidemia, hypertension, renal disease, thyroid disease, valvular heart disease, other Psychiatric history: no psych history - Past Surgical History Surgical History: appendectomy, , heart valve replacement, other - Social History Smoking Status: Never smoker Smokeless Tobacco Status: No Alcohol use: none Drug use: none Current living situation: ECF - Family History Father History Unknown: Yes Living Status: Medications and Allergies Albuterol Sulfate [Proair Hfa] 4 puff IH Q6H PRN 09/28/16 [History] Baclofen [Lioresal] 10 mg PO TID 09/28/16 [History] Digoxin [Lanoxin] 0.25 mg PO DAILY 09/28/16 [History] Donepezil HCl [Aricept] 10 mg PO HS 09/28/16 [History] Donepezil [Aricept] 5 mg PO QAM 09/28/16 [History] Duloxetine HCl [Cymbalta] 60 mg PO DAILY 09/28/16 [History] Esomeprazole Magnesium [Nexium] 40 mg PO QPM 09/28/16 [History] Furosemide [Lasix] 40 mg PO DAILY 09/28/16 [History] Lactulose 10 gm PO DAILY PRN 09/28/16 [History] Lisinopril [Zestril] 10 mg PO DAILY 09/28/16 [History] Montelukast [Singulair] 10 mg PO DAILY 09/28/16 [History] Nitroglycerin [Nitrostat] 0.4 mg SL Q5M PRN 09/28/16 [History] Simvastatin [Zocor] 20 mg PO HS 09/28/16 [History] SitaGLIPtin [Januvia] 100 mg PO DAILY 09/28/16 [History] Warfarin [Coumadin] 3 mg PO [id number] 09/28/16 [History] Levothyroxine [Synthroid] 150 mcg PO QAM 10/05/16 [History] Metformin HCl [Metformin HCl ER] 1,000 mg PO QAM 10/05/16 [History] Nystatin POWDER [Nystop] 1 appl TP TID 10/05/16 [History] Acetaminophen [Tylenol] 650 mg PO Q4H PRN 12/05/16 [History] LORazepam [Ativan] 0.5 mg PO BID 12/05/16 [History] Simethicone 30 ml PO Q4H PRN 12/05/16 [History] Warfarin Sodium [Coumadin] 6 mg PO MOTH 12/05/16 [History] Allergies Penicillins [PCN] Allergy (Verified 01/23/16 09:23) Rash Sulfa (Sulfonamide Antibiotics) Allergy (Verified 01/23/16 09:23) Rash azithromycin Adverse Reaction (Verified 09/28/16 20:11) Unknown ECF list All Systems: A 10-system review of systems was performed and is negative for pertinent findings except as documented above in the HPI. Review of Systems: The patient denies any complaints at this time. Physical Examination - Vital Signs Vital Signs: Initial Vital Signs Temp Pulse Resp BP Pulse Ox 97.6 F 71 14 144/64 90 L 12/05/16 10:44 12/05/16 10:44 12/05/16 10:44 12/05/16 10:44 12/05/16 10:44 - Constitutional General appearance: comfortable - Neurologic Sensorimotor examination: intact Detailed motor examination: full strength in all major muscle groups Motor examination - right side: 5/5: deltoids, biceps, triceps, wrist flexion, wrist extension, price checker, hip flexors, tibialis Anterior, quadriceps, toe extension (EHL), plantarflexion Motor examination - left side: 5: deltoids, biceps, triceps, wrist flexion, wrist extension, hip flexors, price checker, quadriceps, tibialis Anterior, toe extension (EHL), plantarflexion Detailed sensory examination: intact Reflexes: Biceps: 2+, Brachioradialis: 2+, Patella: 2+, Achilles: 2+ Mental Status Examination: awake, alert, oriented to person, oriented to place, follows commands appropriately, answers questions appropriately (With the exception of where she lived as well as the date.), no aphasia, no aproxia Cranial nerve examination: PERRL, EOMI, visual benjamin intact, corneal reflexes brisk symmetrically, sensory to face intact, mastication intact, no facial asymmetry is present, no dysarthria, hearing is intact symmetrically, soft palate elevates bilaterally upon phonation, flexes SCM and trapezius muscles symmetrically with full power, tongue protrudes midline, no atrophy or facial fasiculations present Cerebellar examination: no dysmetria, performs finger to nose and heel to francois symmetrically without ataxia, no difficulty with rapid alternating movements Results - Laboratory Findings CBC and BMP: 12/06/16 04:05 12/06/16 04:05 Abnormal lab findings: Abnormal lab results Immature Plt Fraction 6.3 % (1.1-6.1) H 12/05/16 12:27 PT 27.3 Seconds (9.4-12.1) H 12/05/16 11:48 APTT 48.6 Seconds (26.0-36.0) H 12/05/16 11:48 Calcium 8.5 mg/dL (8.6-10.8) L 12/06/16 04:05 Ammonia 16 mcmol/L (18-72) L 12/05/16 12:27 Albumin 3.4 g/dL (3.5-5.0) L 12/05/16 12:27 Globulin 4.1 g/dL (2.4-3.5) H 12/05/16 12:27 Albumin/Globulin Ratio 0.8 (1.1-2.2) L 12/05/16 12:27 TSH 0.095 mcIU/mL (0.350-4.840) L 12/05/16 12:27 Free T4 1.73 ng/dl (0.70-1.48) H 12/05/16 12:27 Urine Clarity Cloudy (Clear) A 12/05/16 13:20 Ur Specific [place] 1.007 (1.010-1.025) L 12/05/16 13:20 Ur Leukocyte Esterase Trace (Negative) H 12/05/16 13:20 Ur Squamous Epith Cells Many per lpf (None-Few) H 12/05/16 13:20 Ur Culture Indicated? YES (NO) A 12/05/16 13:20 - Attending Attestation I examined this patient and my medical decision-making was reviewed with the Resident Physician. I agree with the documented findings, disposition and treatment plan as described except to the extent set forth below. Consult Discharge Plan - Plan Referrals: Jules Spain Jr, MD [Primary Care Provider] -
[2016-12-06] MEDS ORDERED: *HR* LORazepam 2 MG/ML VIAL IM STA (10:05)
[2016-12-06] MEDS: *HR* Digoxin 0.25 MG TABLET PO SCH (10:19)
[2016-12-06] MEDS: *HR* LORazepam 0.5 MG TABLET PO SCH ×2 (10:20→20:56)
[2016-12-06] MEDS: Furosemide 40 MG TABLET PO SCH (10:20)
[2016-12-06] MEDS: Nystatin POWDER 30 GM BOTTLE TP SCH ×2 (10:20→15:49)
[2016-12-06] MEDS: *HR* Metformin 500 MG TABLET PO SCH ×2 (10:20→15:48)
[2016-12-06] MEDS: Baclofen 10 MG TABLET PO SCH ×3 (10:21→20:56)
--- NOTE | 2016-12-06 13:09 | EEG/EMG/Oth Biometrics Report ---
EEG Procedure Report Date of procedure: 12/06/16 EEG Procedure: Routine EEG Procedure Note: Routine EEG Routine 18-channel digital EEG was obtained to rule out any seizure activity or focal abnormalities. FINDINGS: Background rhythm during awake stage shows well-organized, well- developed, average voltage 8 to 9 hertz alpha activity in the posterior regions. It blocks with eye opening and it is bilaterally synchronous and symmetrical. No [id number] discharges or any lateralizing abnormalities are seen. Photic stimulation did not produce any abnormalities. Hyperventilation was not performed. No abnormalities were found during the procedure. Intermittent EMG artifacts were seen. Stage II sleep was not achieved. IMPRESSION: Normal awake study. No epileptiform discharges or any other paroxysmal activities or focal abnormalities seen. Clinical correlation is recommended.
--- NOTE | 2016-12-06 14:20 | Internal Med Progress Note ---
Date of Encounter: 12/06/16 Time of Encounter: 10:30 - Assessment and plan (1) Altered mental status Current Visit: Yes Status: Acute Assessment and plan: When I examined the patient, she was alert and oriented 3 and cooperative. She denied pain or shortness of breath at that time. Shortly after my departure from her room, patient began to yell at her nurse and became combative. Her examination is consistent with delirium and likely compounded with her known dementia. Her son reportedly spoke to the social work nurse and stated that if she did not get her anxiety medications that her behavior would become a problem. Patient is oscillating between cooperative and combative and has necessitated IM Ativan as she ripped out her peripheral IV. Unclear causation at this time. No reversible or acute processes identified thus far. Chest x-ray negative. Head CT negative. Cervical spine CT negative. Brain MRI negative. Urinalysis abnormal however urine culture negative. Tox screen negative. [facility] recommended ECF placement, she is currently at assisted living, director of social services on board. ITS Impressions Chest X-Ray 12/05/16 10:43 IMPRESSION: No acute cardiopulmonary process. D/ / 12/05/2016 11:31:22 Bernadine Barrett MD / juan miguel Interpreting Provider: Bernadine Barrett MD Head CT 12/05/16 10:44 IMPRESSION: No acute intracranial abnormality. D/ / 12/05/2016 11:57:33 Bell Leavitt MD / carmela Interpreting Provider: Bell Leavitt MD Cervical Spine CT 12/05/16 10:47 IMPRESSION: No acute abnormality of the cervical spine. Status post C4-6 anterior instrumented fusion. D/ / Ryan Adamson MD / Ryan Adamson MD Interpreting Provider: Ryan Adamson MD Brain MRI 12/05/16 16:38 IMPRESSION: 1. No acute intracranial abnormality within limits of motion artifact. 2. Senescent parenchymal volume loss and mild chronic white matter microvascular ischemic changes. 3. Stable scattered small foci of nonspecific remote microhemorrhage, which are most commonly associated with hypertensive microangiopathy. D/ / Juan Del Real MD / Juan Del Real MD Interpreting Provider: Juan Del Real MD (2) Abnormal urinalysis Current Visit: Yes Status: Ruled-out Assessment and plan: Urine culture negative (3) Polypharmacy Current Visit: Yes Status: Chronic Assessment and plan: At home, patient is on lorazepam twice a day, baclofen 3 times a day, Cymbalta daily. His medications have all been resumed during this admission (4) Risk for falls Current Visit: Yes Status: Acute Assessment and plan: OT and PT have recommended ECF placement, director of social services on board. She appears to currently be an [facility] living. (5) DVT prophylaxis Current Visit: No Status: Acute Assessment and plan: Therapeutic on Coumadin (6) Warfarin anticoagulation Current Visit: No Status: Acute Assessment and plan: Therapeutic on Coumadin (7) Atrial fibrillation Current Visit: No Status: Chronic Assessment and plan: Rate controlled, therapeutic on Coumadin with INR 2.5 Qualifiers: Atrial fibrillation type: paroxysmal Qualified Code(s): I48.0 - Paroxysmal atrial fibrillation (8) COPD (chronic obstructive pulmonary disease) Current Visit: No Status: Chronic Assessment and plan: No acute exacerbation. Patient denies shortness of breath above her norm. No respiratory distress on examination. Qualifiers: COPD type: unspecified COPD Qualified Code(s): J44.9 - Chronic obstructive pulmonary disease, unspecified (9) Dementia Current Visit: No Status: Chronic Qualifiers: Dementia type: Alzheimer's disease Alzheimer's disease onset: late-onset Dementia behavioral disturbance: with behavioral disturbance Qualified Code(s) : G30.1 - Alzheimer's disease with late onset; F02.81 - Dementia in other diseases classified elsewhere with behavioral disturbance (10) H/O aortic valve replacement Current Visit: No Status: Chronic (11) Hypertension Current Visit: No Status: Chronic Assessment and plan: Controlled, we will continue to trend and adjust medications as indicated. Qualifiers: Hypertension type: essential hypertension Qualified Code(s): I10 - Essential (primary) hypertension (12) Hypothyroidism Current Visit: No Status: Chronic Assessment and plan: In 2013 and 2014, her TSH was elevated. Currently, her TSH is low at 0.095 and her free T4 is high at 1.73. 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 She is currently on 150 g of Synthroid daily, we will decrease her dose to 125 g Qualifiers: Hypothyroidism type: acquired Qualified Code(s): E03.9 - Hypothyroidism, unspecified (13) Type 2 diabetes mellitus Current Visit: No Status: Chronic Assessment and plan: Controlled. Recent A1c in August 2016 5.6%. Continue sliding scale while admitted. Qualifiers: Diabetes mellitus complication status: without complication Diabetes mellitus usp insulin use: without usp use Qualified Code(s): E11.9 - Type 2 diabetes mellitus without complications - Subjective Interval history: Patient seen and examined as she was getting her bedside EEG. Patient alert and oriented 3 and able to answer all questions appropriately. She denied pain. - Constitutional Vitals: Temp Pulse Resp BP Pulse Ox 98.3 F 78 17 121/66 96 12/06/16 07:26 12/06/16 11:09 12/06/16 11:09 12/06/16 11:09 12/06/16 11:09 General appearance: Present: A&O X 3, pleasant, no acute distress, answers questions appropriately - Head Head exam: Present: atraumatic, normocephalic - Eye Eye exam: Present: PERRL, conjuntiva pink, sclera anicteric Pupils: Present: PERRL - Neck Neck exam general surgery: Present: supple, trachea midline. Absent: lymphadenopathy - Respiratory Respiratory exam: Present: CTAB. Absent: accessory muscle use, rales, respiratory distress, rhonchi, wheezes - Cardiovascular Cardiovascular exam: Present: RRR, +S1, +S2. Absent: diastolic murmur, gallop, rubs, systolic murmur - GI/Abdominal GI/Abdominal exam: Present: normal bowel sounds, soft, no peritoneal signs. Absent: distended, tenderness - Extremities Exam Extremities exam: Present: warm, radial pulses palpable and symetrical. Absent : calf tenderness, cyanotic, pedal edema - Neurological Exam Neurological exam: Present: alert, CN II-XII intact, oriented X3, no focal deficits, strengths equal and symetr throughout. Absent: pronater drift, facial droop, speech deficit - Skin Skin exam: Present: dry, intact, pallor, warm Internal Medicine: Result - Labs CBC & Chem 7: 12/06/16 04:05 12/06/16 04:05 Labs: Short CBC 12/06/16 Range/Units 04:05 WBC 9.5 (4.3-11.1) K/mcL Hgb 12.2 D (11.5-15.4) g/dL Hct 37.4 (35.3-44.9) % Plt Count 162 (140-400) K/mcL Neutrophils # 6.5 (1.6-8.9) K/mcL BMP 12/06/16 04:05 Sodium 140 Potassium 3.8 Chloride 105 Carbon Dioxide 29 BUN 10 Creatinine 0.67 Glucose 95 Calcium 8.5 L - ABG Interpretation ABG results: PT/INR, D-dimer PT 27.3 Seconds (9.4-12.1) H 12/05/16 11:48 - Impressions Impressions Brain MRI 12/05/16 16:38 IMPRESSION: 1. No acute intracranial abnormality within limits of motion artifact. 2. Senescent parenchymal volume loss and mild chronic white matter microvascular ischemic changes. 3. Stable scattered small foci of nonspecific remote microhemorrhage, which are most commonly associated with hypertensive microangiopathy. D/ / Juan Del Real MD / Juan Del Real MD Interpreting Provider: Juan Del Real MD Consult Discharge Plan - Plan Referrals: Jules Spain Jr, MD [Primary Care Provider] -
[2016-12-06] MEDS ORDERED: *HR* LORazepam 2 MG/ML VIAL IM PRN (17:52)
[2016-12-06] MEDS ORDERED: *HR* Warfarin 3 MG TABLET PO SCH (18:00)
[2016-12-07] MEDS: Nystatin POWDER 30 GM BOTTLE TP SCH ×2 (06:39→09:17)
[2016-12-07] MEDS: *HR* LORazepam 0.5 MG TABLET PO SCH (09:13)
[2016-12-07] MEDS: Baclofen 10 MG TABLET PO SCH (09:13)
[2016-12-07] MEDS: Furosemide 40 MG TABLET PO SCH (09:13)
[2016-12-07] MEDS: *HR* Digoxin 0.25 MG TABLET PO SCH (09:13)
[2016-12-07] MEDS: *HR* Metformin 500 MG TABLET PO SCH (09:13)
--- NOTE | 2016-12-07 09:15 | Neurology Progress Note ---
Date of Encounter: 12/07/16 Time of Encounter: 09:13 Assessment and Plan (1) Altered mental status Current Visit: Yes Status: Resolved It appears the patient is back at baseline. She has been experiencing some sundowning. This is likely due to hospital admission. The patient's EEG demonstrated no signs of epileptic activity. We would recommend discharging the patient at this time from a neurologic standpoint. We appreciate the consultation and participation in the patient's care. Qualifiers: Altered mental status type: delirium Qualified Code(s): R41.0 - Disorientation, unspecified (2) Dementia Current Visit: No Status: Chronic Qualifiers: Dementia type: Alzheimer's disease Alzheimer's disease onset: late-onset Dementia behavioral disturbance: with behavioral disturbance Qualified Code(s) : G30.1 - Alzheimer's disease with late onset; F02.81 - Dementia in other diseases classified elsewhere with behavioral disturbance (3) Atrial fibrillation Current Visit: No Status: Chronic Qualifiers: Atrial fibrillation type: paroxysmal Qualified Code(s): I48.0 - Paroxysmal atrial fibrillation (4) Hypertension Current Visit: No Status: Chronic Qualifiers: Hypertension type: essential hypertension Qualified Code(s): I10 - Essential (primary) hypertension (5) Type 2 diabetes mellitus Current Visit: No Status: Chronic Qualifiers: Diabetes mellitus complication status: without complication Diabetes mellitus superintendent marine oil terminal insulin use: without superintendent marine oil terminal use Qualified Code(s): E11.9 - Type 2 diabetes mellitus without complications Subjective Principal diagnosis: AMS Interval history: Patient did experience sundowning overnight requiring medication sedation. The patient lives at [facility] and has baseline dementia without behavioral disturbances. The patient was asleep but easily awoken. Pleasant without any complaints other than wanting to go home. Objective - Constitutional Vitals: Temp Pulse Resp BP Pulse Ox 97.4 F L 77 16 154/86 94 L 12/07/16 07:48 12/07/16 07:48 12/07/16 07:48 12/07/16 07:48 12/07/16 07:48 General appearance: Present: A&O X 2 (Unable to illicit year. She knew she was in the hospital but unsure of exactly which one despite knowing she was in [place].), pleasant, no acute distress - Neurological Exam Sensorimotor examination: Present: intact Motor Examination: Present: full strength in all major muscle groups Motor examination - right side: 5/5: deltoids, biceps, triceps, wrist flexion, wrist extension, jointer machine operator, hip flexors, tibialis Anterior, quadriceps, toe extension (EHL), plantarflexion Motor examination - left side: 5: deltoids, biceps, triceps, wrist flexion, wrist extension, hip flexors, jointer machine operator, quadriceps, tibialis Anterior, toe extension (EHL), plantarflexion Sensation intact: Present: intact Reflexes: Patella: 2+ Mental Status Examination: Present: awake, alert, oriented to person, oriented to place, follows commands appropriately, answers questions appropriately (With the exception of where she lived as well as the date.), no aphasia, no aproxia Cranial nerve examination: Present: PERRL, EOMI, visual benjamin intact, corneal reflexes brisk symmetrically, sensory to face intact, mastication intact, no facial asymmetry is present, no dysarthria, hearing is intact symmetrically, soft palate elevates bilaterally upon phonation, flexes SCM and trapezius muscles symmetrically with full power, tongue protrudes midline, no atrophy or facial fasiculations present Cerebellar examination: Present: no dysmetria, performs finger to nose and heel to francois symmetrically without ataxia, no difficulty with rapid alternating movements Results - Laboratory Findings CBC and BMP: 12/06/16 04:05 12/06/16 04:05 Abnormal lab findings: Abnormal lab results Immature Plt Fraction 6.3 % (1.1-6.1) H 12/05/16 12:27 PT 27.3 Seconds (9.4-12.1) H 12/05/16 11:48 APTT 48.6 Seconds (26.0-36.0) H 12/05/16 11:48 POC Glucose 115 (58-89) H 12/06/16 19:46 Calcium 8.5 mg/dL (8.6-10.8) L 12/06/16 04:05 Ammonia 16 mcmol/L (18-72) L 12/05/16 12:27 Albumin 3.4 g/dL (3.5-5.0) L 12/05/16 12:27 Globulin 4.1 g/dL (2.4-3.5) H 12/05/16 12:27 Albumin/Globulin Ratio 0.8 (1.1-2.2) L 12/05/16 12:27 TSH 0.095 mcIU/mL (0.350-4.840) L 12/05/16 12:27 Free T4 1.73 ng/dl (0.70-1.48) H 12/05/16 12:27 Urine Clarity Cloudy (Clear) A 12/05/16 13:20 Ur Specific [place] 1.007 (1.010-1.025) L 12/05/16 13:20 Ur Leukocyte Esterase Trace (Negative) H 12/05/16 13:20 Ur Squamous Epith Cells Many per lpf (None-Few) H 12/05/16 13:20 Ur Culture Indicated? YES (NO) A 12/05/16 13:20 Consult Discharge Plan - Plan Referrals: Jules Spain Jr, MD [Primary Care Provider] - - Attending Attestation I examined this patient and my medical decision-making was reviewed with the Resident Physician. I agree with the documented findings, disposition and treatment plan as described except to the extent set forth below.
[2016-12-07 11:59] VITALS: BP 115/63
--- NOTE | 2016-12-07 13:54 | Discharge Summary ---
Date of Encounter: 12/07/16 Time of Encounter: 12:30 - Discharge Diagnosis (1) Altered mental status Priority: Primary Status: Resolved Comments: Patient was admitted and observed over the course of 3 days and during the day, patient was alert and oriented 3 and pleasant. Towards the evening and night hours, patient would become confused and mildly combative consistent with sundowning and alzheimers. She did require IM Ativan during this admission. She did pull out peripheral IVs. Initial plan was to send her to ECF [facility] however she was declined and her son did not want to pursue any other places she will be returned back to assisted living at [facility]. No acute infectious or abnormalities noted on extensive workup to include head CT, cervical spine CT, brain MRI, EEG, tox screen, urinalysis. Qualifiers: Altered mental status type: delirium Qualified Code(s): R41.0 - Disorientation, unspecified (2) Abnormal urinalysis Priority: Primary Status: Ruled-out Comments: Urine culture negative (3) Polypharmacy Priority: Secondary Status: Chronic Comments: At home, patient is on lorazepam twice a day, baclofen 3 times a day, Cymbalta daily. These medications were all been resumed during this admission and none of them are new to her making polypharmacy as a contributing factor less likely (4) Risk for falls Priority: Primary Status: Acute Comments: She was evaluated by occupational and physical therapy both of whom recommended ECF placement. She was refused at [facility] and her son did not want any other places attempted so she will be sent back to assisted living at [facility] (5) DVT prophylaxis Priority: Primary Status: Acute Comments: Therapeutic on Coumadin (6) Warfarin anticoagulation Priority: Secondary Status: Chronic (7) Atrial fibrillation Priority: Secondary Status: Chronic Comments: Rate controlled, therapeutic on Coumadin Qualifiers: Atrial fibrillation type: paroxysmal Qualified Code(s): I48.0 - Paroxysmal atrial fibrillation (8) COPD (chronic obstructive pulmonary disease) Priority: Secondary Status: Chronic Comments: No acute exacerbation Qualifiers: COPD type: unspecified COPD Qualified Code(s): J44.9 - Chronic obstructive pulmonary disease, unspecified (9) Dementia Priority: Secondary Status: Chronic Comments: Appears stable and consistent with her baseline Qualifiers: Dementia type: Alzheimer's disease Alzheimer's disease onset: late-onset Dementia behavioral disturbance: with behavioral disturbance Qualified Code(s) : G30.1 - Alzheimer's disease with late onset; F02.81 - Dementia in other diseases classified elsewhere with behavioral disturbance (10) H/O aortic valve replacement Priority: Secondary Status: Chronic (11) Hypertension Priority: Secondary Status: Chronic Comments: Controlled but borderline hypertensive at times of agitation but otherwise well controlled. Recommend continued follow-up outpatient. Qualifiers: Hypertension type: essential hypertension Qualified Code(s): I10 - Essential (primary) hypertension (12) Hypothyroidism Priority: Secondary Status: Chronic Comments: In 2013 and 2014, her TSH was elevated. Currently, her TSH is low at 0.095 and her free T4 is high at 1.73. 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 She is currently on 150 g of Synthroid daily, we will decrease her dose to 125 g Qualifiers: Hypothyroidism type: acquired Qualified Code(s): E03.9 - Hypothyroidism, unspecified (13) Type 2 diabetes mellitus Priority: Secondary Status: Chronic Comments: Controlled. Recent A1c in August 2016 5.6%. Follow-up outpatient Qualifiers: Diabetes mellitus complication status: without complication Diabetes mellitus manager terminal insulin use: without long-term use Qualified Code(s): E11.9 - Type 2 diabetes mellitus without complications - Discharge Medications Prescriptions: Levothyroxine [Synthroid] 125 mcg PO DAILY@0630 #30 tablet Quetiapine Fumarate [SEROquel] 12.5 mg PO HS #15 tablet Home Medications: Albuterol Sulfate [Proair Hfa] 4 puff IH Q6H PRN 09/28/16 [History] Baclofen [Lioresal] 10 mg PO TID 09/28/16 [History] Digoxin [Lanoxin] 0.25 mg PO DAILY 09/28/16 [History] Donepezil HCl [Aricept] 10 mg PO HS 09/28/16 [History] Donepezil [Aricept] 5 mg PO QAM 09/28/16 [History] Duloxetine HCl [Cymbalta] 60 mg PO DAILY 09/28/16 [History] Esomeprazole Magnesium [Nexium] 40 mg PO QPM 09/28/16 [History] Furosemide [Lasix] 40 mg PO DAILY 09/28/16 [History] Lactulose 10 gm PO DAILY PRN 09/28/16 [History] Lisinopril [Zestril] 10 mg PO DAILY 09/28/16 [History] Montelukast [Singulair] 10 mg PO DAILY 09/28/16 [History] Nitroglycerin [Nitrostat] 0.4 mg SL Q5M PRN 09/28/16 [History] Simvastatin [Zocor] 20 mg PO HS 09/28/16 [History] SitaGLIPtin [Januvia] 100 mg PO DAILY 09/28/16 [History] Warfarin [Coumadin] 3 mg PO SUTUWEFRSA 09/28/16 [History] Metformin HCl [Metformin HCl ER] 1,000 mg PO QAM 10/05/16 [History] Nystatin POWDER [Nystop] 1 appl TP TID 10/05/16 [History] Acetaminophen [Tylenol] 650 mg PO Q4H PRN 12/05/16 [History] LORazepam [Ativan] 0.5 mg PO BID 12/05/16 [History] Simethicone 30 ml PO Q4H PRN 12/05/16 [History] Warfarin Sodium [Coumadin] 6 mg PO MOTH 12/05/16 [History] Levothyroxine [Synthroid] 125 mcg PO DAILY@0630 #30 tablet 12/07/16 [Rx] Quetiapine Fumarate [SEROquel] 12.5 mg PO HS #15 tablet 12/07/16 [Rx] Allergies/Adverse Reactions: Allergies Penicillins [PCN] Allergy (Verified 01/23/16 09:23) Rash Sulfa (Sulfonamide Antibiotics) Allergy (Verified 01/23/16 09:23) Rash azithromycin Adverse Reaction (Verified 09/28/16 20:11) Unknown ECF list Procedures/tests Complete & Pending: Procedures Performed prior 72 hours Category Date Time Status MR head/brain wo con [MR] Stat MRI 12/05/16 16:38 Completed Date of admission: 12/05/16 15:51 Primary care physician: Jules Spain Jr, MD Consults: 12/05/16 17:56 Consult to Service Desk Manager [CONS] Routine Reason for SW Consult: Pt lives at [facility] 12/05/16 18:43 Consult to Occupational Therapy [CONS] Routine Comment: Evaluate, develop and implement POC Consult to Physical Therapy [CONS] Routine Comment: Evaluate, develop and implement POC 12/06/16 10:03 Consult to Interpret Exam [CONS] Routine Consulting Provider: Maureen Banegas I Consult to Interpret Exam: Interpret EEG Discharging clinician: Carol Montgomery Anticipated date of discharge: 12/07/16 (sending back to assisted living- was declined at [facility]) - Patient Status Disposition: Home, Self-Care Condition: Fair Functional capacity at discharge: uses cane/walker Overall status at discharge: patient is back to baseline - Discharge Instructions Follow Up With: Jules Spain Jr, MD [Primary Care Provider] - Additional Instructions: Follow-up with primary care provider in one to 2 weeks - Diet and Activity Activity: increase activity as tolerated Diet: diabetic diet, low fat, low cholesterol, low salt diet Hospital course: Ms. Devine is a 81 year old female with past medical history of atrial fibrillation, cardiomyopathy, COPD, dementia, diabetes, GERD, hyperlipidemia, hypertension, chronic kidney disease, hypothyroidism, aortic valve replacement on Coumadin therapy. Patient was brought to the emergency department chief complaint altered mental status. According to ER report, upon arrival, patient was obtunded and difficult to arouse then became severely agitated. Workup in the emergency department unremarkable except for abnormal urinalysis. Chest x- ray negative. Head CT negative. Cervical spine CT negative. Patient was admitted to the hospitalist service for further evaluation and management. Brain MRI negative. Urinalysis abnormal however urine culture negative. Tox screen negative. Her TSH was noted to be low and her T4 was high so her Synthroid dosage was decreased. Throughout this admission, patient was alert and pleasant and oriented during the day then as the evening progressed, she would become confused and agitated at times it would require IM Ativan (she pulled out several peripheral IVs). Neurology on board for performed EEG that was unremarkable. Neurology felt the patient was consistent with her baseline and no further workup was recommended. OT and PT recommended ECF placement and we attempted to place the patient at [facility] but they declined her. The son states that he did not want to try any other places and would prefer for her to go back to assisted living. Allegedly, the assisted living facility [facility] will check on this patient every 2 hours. She was started on Seroquel at bedtime to assist with her owning. She was discharged back to assisted living in stable condition with close outpatient follow-up recommended. ITS Impressions Chest X-Ray 12/05/16 10:43 IMPRESSION: No acute cardiopulmonary process. D/ / 12/05/2016 11:31:22 Bernadine Barrett MD / juan [email or web address] Interpreting Provider: Bernadine Barrett MD Head CT 12/05/16 10:44 IMPRESSION: No acute intracranial abnormality. D/ / 12/05/2016 11:57:33 Bell Leavitt MD / [email or web address] Interpreting Provider: Bell Leavitt MD Cervical Spine CT 12/05/16 10:47 IMPRESSION: No acute abnormality of the cervical spine. Status post C4-6 anterior instrumented fusion. D/ / Ryan Adamson MD / Ryan Adamson MD Interpreting Provider: Ryan Adamson MD Brain MRI 12/05/16 16:38 IMPRESSION: 1. No acute intracranial abnormality within limits of motion artifact. 2. Senescent parenchymal volume loss and mild chronic white matter microvascular ischemic changes. 3. Stable scattered small foci of nonspecific remote microhemorrhage, which are most commonly associated with hypertensive microangiopathy. D/ / Juan Del Real MD / Jaun Del Real MD Interpreting Provider: Juan Del Real MD impression: Normal awake study. No epileptiform discharges or any other paroxysmal activities or focal abnormality seen. - Time Spent with Patient Total time spent providing and/or coordinating discharge services: - Constitutional Vitals: Temp Pulse Resp BP Pulse Ox 97.9 F 78 18 115/63 95 12/07/16 11:55 12/07/16 11:55 12/07/16 11:55 12/07/16 11:55 12/07/16 11:55 General appearance: Present: disheveled, A&O X 3, pleasant, no acute distress, answers questions appropriately (during the day) - Head Head exam: Present: atraumatic, normocephalic - Eye Eye exam: Present: PERRL, conjuntiva pink, sclera anicteric Pupils: Present: PERRL - Neck Neck exam general surgery: Present: supple, trachea midline. Absent: lymphadenopathy - Respiratory Respiratory exam: Present: CTAB. Absent: accessory muscle use, rales, respiratory distress, rhonchi, wheezes - Cardiovascular Cardiovascular exam: Present: RRR, +S1, +S2. Absent: diastolic murmur, gallop, rubs, systolic murmur - GI/Abdominal GI/Abdominal exam: Present: normal bowel sounds, soft, no peritoneal signs. Absent: distended, tenderness - Extremities Exam Extremities exam: Present: warm, radial pulses palpable and symetrical. Absent : calf tenderness, cyanotic, pedal edema - Neurological Exam Neurological exam: Present: alert, CN II-XII intact, oriented X3, no focal deficits, strengths equal and symetr throughout. Absent: pronater drift, facial droop, speech deficit - Skin Skin exam: Present: dry, intact, pallor, warm
== END 2016-12-07 15:12 | disposition home or self-care (01) ==
LOC: EMEROO 10:39 → 3BNU 10:39
PROVIDERS: ADMIT Internal Medicine; ATTEND Nurse Practitioner Family